=== PATIENT | female | born 1960 | race Caucasian/White ===

== ENCOUNTER → 2016-10-11 | Outpatient (CLI) | payer OTHER ==
--- NOTE | 2016-10-11 10:07 | XR ---
Thoracic spine HISTORY: Mid back pain 2 views of the thoracic spine on 4 images Comparison lumbar spine same date Thoracic vertebral bodies show preserved height, alignment, and bone mineralization. There is multile alison spondylosis. Disc spaces are maintained. There is mild spinal curvature. Multilevel spondylosis. IMPRESSION: Mild spinal curvature, degenerative disc change.
--- NOTE | 2016-10-11 10:08 | XR ---
Lumbosacral spine HISTORY: Low back pain, M54.5 By views of the lumbosacral spine correlated to the thoracic spine same day Bone mineralization may be mildly reduced. There is multilevel spondylosis. Loss of disc height L4-5 and L5-S1. Sclerosis of the posterior elements compatible with facet arthropathy. Lumbar vertebral lissy dies show preserved height and alignment. No spondylolysis and oblique views. IMPRESSION: Degenerative disc disease, osteopenia, facet arthropathy.
--- NOTE | 2016-10-11 15:33 | US ---
EXAMINATION TYPE: US thyroid st tissue head/neck DATE OF EXAM: 10/11/2016 9:02 AM COMPARISON: NONE CLINICAL History: synthroid for years now blood work wnl GLAND SIZE: Right Lobe: 3.1 x 0.7 x 0.8 cm Overall Parenchyma: homogeneous Left Lobe: 2.9 x 1.0 x 1.0 cm Overall Parenchyma: homogeneous Isthmus Thickness: 0.1 cm NODULES RIGHT: # of nodules measured on right: 0 ;LEFT: # of nodules measured on left: 1 1. 0.5 X 0.5 x 0.5 cm solid nodule at the lower pole with poorly defined margins. This nodule is wider than tall and shows intranodular vascularity. Prior size: no prior ISTHMUS: # of nodules measured in the isthmus: 0 TECHNOLOGIST IMPRESSION: Bilateral neck scanned, no abnormal lymphadenopathy noted. IMPRESSION: 1.Subcentimeter nodule left lobe thyroid
== END | disposition home or self-care (01) ==
LOC: RADUSWWP 08:49
PROVIDERS: ATTEND Family Medicine
DX: E03.9 Hypothyroidism, unspecified (principal); M51.36 Other intervertebral disc degeneration, lumbar region; M85.88 Other specified disorders of bone density and structure, other site; M46.96 Unspecified inflammatory spondylopathy, lumbar region; M51.34 Other intervertebral disc degeneration, thoracic region; M43.9 Deforming dorsopathy, unspecified
CPT/HCPCS: 72070; 72110; 76536

== ENCOUNTER → 2016-10-28 | Outpatient (CLI) | payer OTHER ==
--- NOTE | 2016-10-28 21:20 | MR ---
EXAMINATION TYPE: MR lumbar spine wo con DATE OF EXAM: 10/28/2016 8:19 PM COMPARISON: Lumbar spine x-ray dated 10/11/2016 HISTORY: Mid/low back pain, BLE radic x 1 year, no trauma/surgery TECHNIQUE: T1 and T2 axial and sagittal images of the lumbar spine are submitted. FINDINGS: Exam limited by significant motion artifact. There is no abnormal signal seen within the visualized spinal cord or paraspinal soft tissues. There is mild disc desiccation at all levels. T12-L1 no disc herniation or canal stenosis. Neural foramina patent. At L1-2 there is a right paracentral disc bulge or small protrusion. Neural foramina remains patent. No Canal stenosis. At L2-3 there is central disc small protrusion with mild effacement of thecal sac. Neural foramina re main patent. At L3-4 there is no obvious disc herniation or canal stenosis. Facet arthropathy noted. Neural forami na patent. At L4-5 there is no obvious disc herniation or canal stenosis. Facet arthropathy noted. Neural forami na patent. At L5-S1 there is no obvious disc herniation or canal stenosis. Facet arthropathy noted. Neural lucia naila patent. IMPRESSION: 1. Limited exam due to motion artifact. 2. Disc small protrusion L1-2 and L2-L3 with no evidence of canal stenosis or foraminal encroachment . Mild thecal sac effacement at L2-L3 3. Multilevel facet arthropathy and mild degenerative disc disease. EXAMINATION TYPE: MR thoracic spine wo con DATE OF EXAM: 10/28/2016 8:19 PM COMPARISON: Thoracic spine x-ray dated 10/11/2016 HISTORY: Mid/low back pain, BLE radic x 1 year, no trauma/surgery Standard multiplanar, multisequence MRI departmental protocol Multiplanar, multisequence images of the thoracic spine were acquired. Diffusion weighted imaging was performed. FINDINGS: Alignment is anatomic. There are no compression deformities. There is multilevel mild degenerative disc disease. No canal stenosis or focal disc herniation. Neura l foramina patent at all levels. Minimal left paracentral disc bulging T7-T8 and T8-T9. No abnormal signal within the visualized spinal cord or paraspinal soft tissues. IMPRESSION: 1. Multilevel mild degenerative disc disease with minimal disc bulging paracentrally the left T7-T8 a nd T8-T9. No canal stenosis or foraminal encroachment.
== END | disposition home or self-care (01) ==
LOC: RADMRIMAIN 19:08
PROVIDERS: ATTEND Family Medicine
DX: M51.26 Other intervertebral disc displacement, lumbar region (principal); M51.36 Other intervertebral disc degeneration, lumbar region; M46.96 Unspecified inflammatory spondylopathy, lumbar region; M51.24 Other intervertebral disc displacement, thoracic region; M51.34 Other intervertebral disc degeneration, thoracic region
CPT/HCPCS: 72146; 72148

== ENCOUNTER → 2016-12-23 | Outpatient (CLI) | payer OTHER ==
--- NOTE | 2016-12-23 15:07 | XR ---
EXAMINATION TYPE: XR chest 2V DATE OF EXAM: 12/23/2016 3:01 PM HISTORY: R50.9 Intermittent fever, R05 Cough. REFERENCE: Previous study dated 03/24/2016. FINDINGS: The lungs are clear. Pleural spaces are clear. Heart size is normal. IMPRESSION: NORMAL CHEST.
== END | disposition home or self-care (01) ==
LOC: RADXRMAIN 14:41
PROVIDERS: ATTEND Family Medicine
DX: R05 Cough (principal); R50.9 Fever, unspecified
CPT/HCPCS: 71020; 87502

== ENCOUNTER 2017-01-05 15:55 | Emergency (ER) | payer OTHER ==
--- NOTE | 2017-01-05 17:45 | ED ---
General Adult HPI - General Chief complaint: Abdominal Pain Stated complaint: Abdominal pain Time Seen by Provider: 01/05/17 17:21 Source: patient, RN notes reviewed Mode of arrival: ambulatory Limitations: no limitations - History of Present Illness Initial comments: Patient is a pleasant 56-year-old female presenting to the emergency department complaining of abdominal discomfort. Patient did have routine blood work done recently with mild elevation of liver enzymes. Patient then had ultrasound done. Patient states she has had some abdominal discomfort over the past week. Discomfort worse today. Patient has nausea with one or 2 episodes of vomiting. No bleeding. No fevers. No history of chronic abdominal problems. Patient does have a history of alcohol use. Patient states she used to drink daily for around 20 years up to a fifth of alcohol daily. Patient has not drank in years. - Related Data Home Medications Medication Instructions Recorded Confirmed FLUoxetine HCL [PROzac] 40 mg PO DAILY 03/24/16 01/05/17 [place] 80 mg PO DAILY 01/05/17 01/05/17 Cholecalciferol [Vitamin D3] 1,000 unit PO DAILY 01/05/17 01/05/17 Docusate [Colace] 100 mg PO BID PRN 01/05/17 01/05/17 Gabapentin [Neurontin] 300 mg PO HS 01/05/17 01/05/17 HYDROcodone/APAP 5-325MG [[place] 1 tab PO HS 01/05/17 01/05/17 5-325] Levothyroxine Sodium [Synthroid] 75 mcg PO DAILY 01/05/17 01/05/17 Multivitamins, Thera [Multivitamin 1 tab PO DAILY 01/05/17 01/05/17 (formulary)] Previous Rx's Medication Instructions Recorded Dicyclomine [Bentyl] 20 mg PO QID PRN #15 tablet 01/05/17 Famotidine [Pepcid] 20 mg PO BID #30 tablet 01/05/17 Ondansetron Odt [Zofran Odt] 4 mg PO Q8HR PRN #10 tab 01/05/17 Allergies Allergy/AdvReac Type Severity Reaction Status Date / Time heparin Allergy Unknown Verified 01/05/17 17:40 neomycin AdvReac Rash/Hives Verified 01/05/17 18:15 Review of Systems ROS Statement: Those systems with pertinent positive or pertinent negative responses have been documented in the HPI. ROS Other: All systems not noted in ROS Statement are negative. Constitutional: Denies: fever Eyes: Denies: eye pain ENT: Denies: ear pain Respiratory: Denies: cough Cardiovascular: Denies: chest pain Endocrine: Reports: fatigue Gastrointestinal: Reports: abdominal pain, nausea, vomiting. Denies: diarrhea, constipation Genitourinary: Denies: dysuria Musculoskeletal: Denies: back pain Skin: Denies: rash Neurological: Denies: weakness Past Medical History Past Medical History: Hyperlipidemia, Thyroid Disorder History of Any Multi-Drug Resistant Organisms: None Reported Past Surgical History: Section, Hysterectomy, Joint Replacement Additional Past Surgical History / Comment(s): carpal tunnel Past Psychological History: No Psychological Hx Reported Smoking Status: Never smoker Past Alcohol Use History: None Reported Past Drug Use History: None Reported - Past Family History Father History Unknown: Yes Additional Family Medical History / Comment(s): CANCER, ADOPTED NOT MUCH FAMILY HISTORY General Exam Limitations: no limitations General appearance: alert, in no apparent distress Head exam: Present: atraumatic Eye exam: Present: normal appearance, PERRL ENT exam: Present: normal oropharynx Neck exam: Present: normal inspection Respiratory exam: Present: normal lung sounds bilaterally Cardiovascular Exam: Present: regular rate, normal rhythm Expanded Peripheral pulses: 2+: Dorsalis Pedis (R), Dorsalis Pedis (L) GI/Abdominal exam: Present: soft, tenderness (Mild to moderate epigastric tenderness), normal bowel sounds. Absent: distended, guarding, rebound, rigid, pulsatile mass Extremities exam: Present: normal inspection Neurological exam: Present: alert Psychiatric exam: Present: normal affect, normal mood Skin exam: Absent: rash Course Vital Signs 01/05/17 01/05/17 16:15 19:22 Temperature 97.8 F 97.8 F Pulse Rate 82 67 Respiratory 20 18 Rate Blood Pressure 124/81 117/61 O2 Sat by Pulse 94 L 98 Oximetry - Reevaluation(s) Reevaluation #1: 01/05/17 17:43 Recent ultrasound shows possible hepatocellular disease of the liver. Blood work from the primary care physician showed minimal elevation of AST and ALT. EKG Findings - EKG Comments: EKG Findings:: Sinus rhythm at 63. PVC present. CO 144. QRS 76. QT 418. QTC 47. Normal axis. Normal QRS. Normal ST-T. Medical Decision Making - Medical Decision Making Patient is reevaluated and resting comfortably in bed. Patient comfortable with discharge home. Patient updated on results and need for follow-up. Patient is advised to follow-up with her primary care physician regarding liver enzymes as well. - Lab Data Result diagrams: 01/05/17 17:45 01/05/17 17:45 Lab Results 01/05/17 01/05/17 01/05/17 Range/Units 17:45 17:45 17:45 WBC 5.9 (3.8-10.6) k/uL RBC 4.60 (3.80-5.40) m/uL Hgb 15.2 (11.4-16.0) gm/dL Hct 45.1 (34.0-46.0) % MCV 98.0 (80.0-100.0) fL MCH 33.0 (25.0-35.0) pg MCHC 33.7 (31.0-37.0) g/dL RDW 14.0 (11.5-15.5) % Plt Count 305 (150-450) k/uL Neutrophils % 53 % Lymphocytes % 38 % Monocytes % 5 % Eosinophils % 2 % Basophils % 1 % Neutrophils # 3.1 (1.3-7.7) k/uL Lymphocytes # 2.2 (1.0-4.8) k/uL Monocytes # 0.3 (0-1.0) k/uL Eosinophils # 0.1 (0-0.7) k/uL Basophils # 0.1 (0-0.2) k/uL PT (9.0-12.0) sec INR (<1.1) APTT (22.0-30.0) sec Sodium 140 (137-145) mmol/L Potassium 4.3 (3.5-5.1) mmol/L Chloride 102 (98-107) mmol/L Carbon Dioxide 30 (22-30) mmol/L Anion Gap 8 mmol/L BUN 15 (7-17) mg/dL Creatinine 0.82 (0.52-1.04) mg/dL Est GFR (MDRD) Af Amer >60 (>60 ml/min/1.73 sqM) Est GFR (MDRD) Non-Af >60 (>60 ml/min/1.73 sqM) Glucose 85 (74-99) mg/dL Calcium 10.5 H (8.4-10.2) mg/dL Total Bilirubin 0.4 (0.2-1.3) mg/dL AST 47 H (14-36) U/L ALT 114 H (9-52) U/L Alkaline Phosphatase 100 (38-126) U/L Total Creatine Kinase 78 (30-135) U/L CK-MB (CK-2) 0.5 (0.0-2.4) ng/mL CK-MB (CK-2) Rel Index 0.6 Troponin I <0.012 (0.000-0.034) ng/mL Total Protein 7.2 (6.3-8.2) g/dL Albumin 4.3 (3.5-5.0) g/dL Amylase 46 (30-110) U/L Lipase 259 (23-300) U/L Urine Color Urine Appearance (Clear) Urine pH (5.0-8.0) Ur Specific [place] (1.001-1.035) Urine Protein (Negative) Urine Glucose (UA) (Negative) Urine Ketones (Negative) Urine Blood (Negative) Urine Nitrite (Negative) Urine Bilirubin (Negative) Urine Urobilinogen (<2.0) mg/dL Ur Leukocyte Esterase (Negative) Hepatitis A IgM Ab NEGATIVE Hep Bs Antigen Negative Hep B Core IgM Ab NEGATIVE Hep C IgG Ab Negative (Negative) 01/05/17 01/05/17 Range/Units 17:45 17:45 WBC (3.8-10.6) k/uL RBC (3.80-5.40) m/uL Hgb (11.4-16.0) gm/dL Hct (34.0-46.0) % MCV (80.0-100.0) fL MCH (25.0-35.0) pg MCHC (31.0-37.0) g/dL RDW (11.5-15.5) % Plt Count (150-450) k/uL Neutrophils % % Lymphocytes % % Monocytes % % Eosinophils % % Basophils % % Neutrophils # (1.3-7.7) k/uL Lymphocytes # (1.0-4.8) k/uL Monocytes # (0-1.0) k/uL Eosinophils # (0-0.7) k/uL Basophils # (0-0.2) k/uL PT 10.7 (9.0-12.0) sec INR 1.1 (<1.1) APTT 23.8 (22.0-30.0) sec Sodium (137-145) mmol/L Potassium (3.5-5.1) mmol/L Chloride (98-107) mmol/L Carbon Dioxide (22-30) mmol/L Anion Gap mmol/L BUN (7-17) mg/dL Creatinine (0.52-1.04) mg/dL Est GFR (MDRD) Af Amer (>60 ml/min/1.73 sqM) Est GFR (MDRD) Non-Af (>60 ml/min/1.73 sqM) Glucose (74-99) mg/dL Calcium (8.4-10.2) mg/dL Total Bilirubin (0.2-1.3) mg/dL AST (14-36) U/L ALT (9-52) U/L Alkaline Phosphatase (38-126) U/L Total Creatine Kinase (30-135) U/L CK-MB (CK-2) (0.0-2.4) ng/mL CK-MB (CK-2) Rel Index Troponin I (0.000-0.034) ng/mL Total Protein (6.3-8.2) g/dL Albumin (3.5-5.0) g/dL Amylase (30-110) U/L Lipase (23-300) U/L Urine Color Light Yellow Urine Appearance Clear (Clear) Urine pH 6.0 (5.0-8.0) Ur Specific [place] 1.004 (1.001-1.035) Urine Protein Negative (Negative) Urine Glucose (UA) Negative (Negative) Urine Ketones Negative (Negative) Urine Blood Negative (Negative) Urine Nitrite Negative (Negative) Urine Bilirubin Negative (Negative) Urine Urobilinogen <2.0 (<2.0) mg/dL Ur Leukocyte Esterase Negative (Negative) Hepatitis A IgM Ab Hep Bs Antigen Hep B Core IgM Ab Hep C IgG Ab (Negative) - Radiology Data Radiology results: image reviewed (Computed tomography scan of the abdomen and pelvis shows concern for possible small bowel enteritis / ileus.) Disposition Clinical Impression: Enteritis Disposition: HOME SELF-CARE Condition: Stable Instructions: Enteritis (ED) Additional Instructions: Please follow-up with your doctor this week. Return for uncontrolled pain, uncontrolled vomiting, fevers, worsening symptoms or other concerns. Please have your doctor follow-up further regarding liver testing. Prescriptions: Dicyclomine [Bentyl] 20 mg PO QID PRN #15 tablet PRN Reason: Pain Famotidine [Pepcid] 20 mg PO BID #30 tablet Ondansetron Odt [Zofran Odt] 4 mg PO Q8HR PRN #10 tab PRN Reason: Nausea Referrals: Meka Magallon MD [Primary Care Provider] - 1-2 days
[2017-01-05 18:00] LABS: Basophils # (A) 0.1 k/uL (0-0.2); Basophils % (A) 1 %; CH 33.7; CHCM 34.6; Eosinophils # (A) 0.1 k/uL (0-0.7); Eosinophils % (A) 2 %; HCT 45.1 % (34.0-46.0); HDW 2.49; HGB 15.2 gm/dL (11.4-16.0); Luc # (Auto) 0.09; Luc % (Auto) 1; Lymphocytes # (A) 2.2 k/uL (1.0-4.8); Lymphocytes % (A) 38 %; MCHC 33.7 g/dL (31.0-37.0); Mean Platelet Volume 7.2; Monocytes # (A) 0.3 k/uL (0-1.0); Monocytes % (A) 5 %; Neutrophils # (A) 3.1 k/uL (1.3-7.7); Neutrophils % (A) 53 %; WBC 5.9 k/uL (3.8-10.6); WBC (Perox) 5.69
[2017-01-05 18:01] LABS: Appearance,Urine Clear (Clear); Bilirubin,Urine Negative (Negative); Glucose,Urine (UA) Negative (Negative); Ketones,Urine Negative (Negative); Leukocyte Esterase,Urine Negative (Negative); Nitrite,Urine Negative (Negative); Protein,Urine Negative (Negative); Specific Gravity,Urine 1.004 (1.001-1.035); UA Billing (MACRO vs. MICRO) CHEM; Urobilinogen,Urine <2.0 mg/dL (<2.0)
[2017-01-05 18:09] LABS: INR 1.1 (<1.1); Prothrombin Time 10.7 sec (9.0-12.0)
[2017-01-05 18:10] LABS: Partial Thromboplastin Time 23.8 sec (22.0-30.0)
[2017-01-05] MEDS: ONDANSETRON 4 MG/2 ML VIAL IVP STA ×2 (18:15→19:27)
[2017-01-05] MEDS: FAMOTIDINE 20 MG/2 ML VIAL IV STA (18:15)
[2017-01-05] MEDS: MORPHINE SULFATE 4 MG/ML SYRINGE IV STA (18:15)
[2017-01-05] MEDS: SODIUM CHLORIDE 0.9% 1,000 ML IV STA (18:16)
[2017-01-05 18:19] LABS: ALT 114 U/L (9-52); AST 47 U/L (14-36); Alkaline Phosphatase 100 U/L (38-126); Amylase 46 U/L (30-110); Anion Gap 8 mmol/L; Blood Urea Nitrogen 15 mg/dL (7-17); Calcium 10.5 mg/dL (8.4-10.2); Carbon Dioxide 30 mmol/L (22-30); Chloride 102 mmol/L (98-107); Glucose 85 mg/dL (74-99); Non-African American GFR(MDRD) >60 (>60 ml/min/1.73 sqM); Potassium 4.3 mmol/L (3.5-5.1); Sodium 140 mmol/L (137-145); Total Bilirubin 0.4 mg/dL (0.2-1.3); Total Protein 7.2 g/dL (6.3-8.2)
[2017-01-05 18:29] LABS: Creatine Kinase 78 U/L (30-135)
[2017-01-05 18:42] LABS: Creatine Kinase MB 0.5 ng/mL (0.0-2.4); Troponin I <0.012 ng/mL (0.000-0.034)
[2017-01-05 18:49] LABS: Hepatitis B Surface Ag Index 0.05
[2017-01-05 18:55] LABS: Hepatitis B Core IgM Index 0.21
[2017-01-05 19:06] LABS: Hepatitis C Virus IgG Index 0.01
[2017-01-05 19:08] LABS: Hepatitis C Virus IgG Ab Negative (Negative)
--- NOTE | 2017-01-05 19:08 | CT ---
EXAMINATION TYPE: CT abdomen pelvis w con DATE OF EXAM: 01/05/2017 6:59 PM COMPARISON: NONE HISTORY: Patient complains of generalized abdominal pain, mildly elevated LFT's, nausea, and vomiting . CT DLP: 463.4 mGycm CONTRAST: CT scan of the abdomen and pelvis is performed without Oral Contrast and with IV Contrast, patient in jected with 100 mL of Omnipaque 300. FINDINGS: LUNG BASES-: No visible nodule. No infiltrate. LIVER/GB: Cholecystectomy changes noted. No space occupying hepatic lesion. Biliary tree is of nor mal caliber. PANCREAS: No inflammation. No distinct mass. SPLEEN: No splenic enlargement. No lesion seen. ADRENALS: No nodule. No thickening. KIDNEYS/BLADDER: No hydronephrosis. No nephrolithiasis. No disctinct renal mass. Urinary bladder g rossly unremarkable. BOWEL: Normal appendix. There are several distended loops of small bowel measuring up to 2.8 cm which may reflect ileus and/or enteritis. The remaining small bowel is of normal caliber. Large bowel is o f normal caliber without inflammatory change. Moderate fecal stasis identified. No evidence for free air or abscess. No inflammation. GENITAL ORGANS: No gross abnormality. LYMPH NODES: No greater than 1cm abdominal or pelvic lymph nodes are appreciated. AORTA: No significant abnormality. OSSEOUS STRUCTURES: No significant abnormality is seen. OTHER: No significant additional abnormality is seen. IMPRESSION: 1. Correlate for small bowel enteritis with a mild ileus.
[2017-01-05 19:22] VITALS: RESP 18
[2017-01-05] MEDS: RX INFO: IV CONTRAST WAS GIVEN 1 EACH MISC MISCELLANE PRN (19:28)
[2017-01-05] MEDS: HYDROmorphone 1 MG/ML 1 ML SYRINGE IVP STA (19:29)
[2017-01-05 20:32] VITALS: BP 139/94; PULSE 86; TEMP 98
== END 2017-01-05 20:35 | disposition home or self-care (01) ==
LOC: EC 15:55
DX: K52.9 Noninfective gastroenteritis and colitis, unspecified (principal); R11.2 Nausea with vomiting, unspecified; R74.8 Abnormal levels of other serum enzymes; E07.9 Disorder of thyroid, unspecified; Z79.891 Long term (current) use of opiate analgesic; Z79.899 Other long term (current) drug therapy; Z88.1 Allergy status to other antibiotic agents; Z88.8 Allergy status to other drugs, medicaments and biological substances
CPT/HCPCS: 36415; 93005; 80053; 80074; 82150; 82550; 82553; 83690; 84484; 85025; 85610; 85730; 81003; 74177; 99284; 96374; 96375 ×3; 96376; 96361 ×2; J2270; J2405; J1170; Q9967

== ENCOUNTER 2017-02-27 23:44 | Emergency (ER) | payer OTHER ==
[2017-02-27] MEDS ORDERED: ONDANSETRON 4 MG/2 ML VIAL IVP STA (23:53)
[2017-02-27] MEDS ORDERED: MAG HYDROX/AL HYDROX/SIMETH 30 ML, HYOSCYAMINE ELIXIR 10 ML, CIMETIDINE HCL 300 MG, LID... PO STA ×4 (23:53)
[2017-02-27] MEDS ORDERED: SODIUM CHLORIDE 0.9% 1,000 ML IV STA (23:53)
--- NOTE | 2017-02-28 00:06 | ED ---
Nausea/Vomiting/Diarrhea HPI - General Stated complaint: Knee Pain-L Time Seen by Provider: 02/27/17 23:46 Source: patient, RN notes reviewed Mode of arrival: EMS Limitations: no limitations - History of Present Illness Initial comments: 57-year-old female presents emergency Department chief complaint of nausea and vomiting. Patient states ever since she started taking Zithromax she's noticed some increased of her GERD and when she bends over she was will feel nauseous and she will vomit. Patient states that happens very quickly. Patient states she was concerned due to her symptoms so she thought that she should be evaluated. Patient has had left knee pain and is supposed knee replacement. She saw her surgeon on Tuesday he states he regained better monitored finish the antibiotics. She states it doesn't seem to be improving from when she was initially seen for it. Patient states she hasn't had a fever chills cough cold runny nose with this. Patient denies any abdominal pain. Patient states she went to make sure that everything was okay so she thought that she should be evaluated. - Related Data Home Medications Medication Instructions Recorded Confirmed FLUoxetine HCL [PROzac] 40 mg PO DAILY 03/24/16 02/27/17 Cholecalciferol [Vitamin D3] 1,000 unit PO DAILY 01/05/17 02/27/17 Docusate [Colace] 100 mg PO BID PRN 01/05/17 02/27/17 Gabapentin [Neurontin] 300 mg PO HS 01/05/17 02/27/17 HYDROcodone/APAP 5-325MG [[place] 1 tab PO HS 01/05/17 02/27/17 5-325] Levothyroxine Sodium [Synthroid] 75 mcg PO DAILY 01/05/17 02/27/17 Multivitamins, Thera [Multivitamin 1 tab PO DAILY 01/05/17 02/27/17 (formulary)] Previous Rx's Medication Instructions Recorded Famotidine [Pepcid] 20 mg PO BID #30 tablet 01/05/17 Ondansetron Odt [Zofran ODT] 4 mg PO Q8HR PRN #20 tab 02/28/17 Allergies Allergy/AdvReac Type Severity Reaction Status Date / Time heparin Allergy Unknown Verified 02/27/17 23:55 neomycin AdvReac Rash/Hives Verified 06/04/17 23:55 Review of Systems ROS Statement: Those systems with pertinent positive or pertinent negative responses have been documented in the HPI. ROS Other: All systems not noted in ROS Statement are negative. Past Medical History Past Medical History: Hyperlipidemia, Thyroid Disorder History of Any Multi-Drug Resistant Organisms: MRSA Past Surgical History: Section, Hysterectomy, Joint Replacement Additional Past Surgical History / Comment(s): carpal tunnel, Past Psychological History: Bipolar Smoking Status: Never smoker Past Alcohol Use History: None Reported Past Drug Use History: None Reported - Past Family History Father History Unknown: Yes Additional Family Medical History / Comment(s): CANCER, ADOPTED NOT MUCH FAMILY HISTORY General Exam - General Exam Comments Initial Comments: General: The patient is awake and alert, in no distress, and does not appear acutely ill. Eye: Pupils are equal, round and reactive to light, extra-ocular movements are intact; there is normal conjunctiva bilaterally. No signs of icterus. Ears, nose, mouth and throat: There are moist mucous membranes and no oral lesions. Neck: The neck is supple, there is no tenderness. Cardiovascular: There is a regular rate and rhythm. No murmur, rub or gallop is appreciated. Respiratory: Lungs are clear to auscultation, respirations are non-labored, breath sounds are equal. No wheezes, stridor, rales, or rhonchi. Gastrointestinal: Soft, non-distended, non-tender abdomen without masses or organomegaly noted. There is no rebound or guarding present. No CVA tenderness. Bowel sounds are unremarkable. Back: There is no tenderness to palpation in the midline. There is no obvious deformity. No rashes noted. Musculoskeletal: Normal ROM, no tenderness, There is no pedal edema. There is no calf tenderness or swelling. Sensation intact. Pulses equal bilaterally 2+. Neurological: CN II-XII intact, There are no obvious motor or sensory deficits. Coordination appears grossly intact. Speech is normal. Skin: Skin is warm and dry and no rashes or lesions are noted. Psychiatric: Cooperative, appropriate mood & affect, normal judgment. Limitations: no limitations Course Vital Signs 02/27/17 02/28/17 23:46 00:58 Temperature 97.9 F 98.2 F Pulse Rate 86 76 Respiratory 18 18 Rate Blood Pressure 161/75 129/75 O2 Sat by Pulse 97 98 Oximetry Medical Decision Making - Medical Decision Making 57-year-old female presents for nausea vomiting that started after starting antibiotics. This time from the story does seem as if her GERD has flared up. The patient nausea as well as a GI cocktail. At this time patient refused to have a enteritis. This time we discussed Zofran. Discussed return parameters and follow-up. Other etiologies for this and all the patient's questions. They state Jah they're in the plan. Patient will be discharged home. - Lab Data Result diagrams: 02/28/17 00:01 02/28/17 00:01 Lab Results 02/28/17 02/28/17 Range/Units 00:01 00:01 WBC 6.6 (3.8-10.6) k/uL RBC 3.47 L (3.80-5.40) m/uL Hgb 11.4 D (11.4-16.0) gm/dL Hct 35.3 (34.0-46.0) % MCV 101.8 H (80.0-100.0) fL MCH 32.9 (25.0-35.0) pg MCHC 32.3 (31.0-37.0) g/dL RDW 14.0 (11.5-15.5) % Plt Count 400 (150-450) k/uL Neutrophils % 67 % Lymphocytes % 23 % Monocytes % 6 % Eosinophils % 2 % Basophils % 1 % Neutrophils # 4.4 (1.3-7.7) k/uL Lymphocytes # 1.5 (1.0-4.8) k/uL Monocytes # 0.4 (0-1.0) k/uL Eosinophils # 0.2 (0-0.7) k/uL Basophils # 0.0 (0-0.2) k/uL Macrocytosis Slight Sodium 143 (137-145) mmol/L Potassium 4.0 (3.5-5.1) mmol/L Chloride 104 (98-107) mmol/L Carbon Dioxide 30 (22-30) mmol/L Anion Gap 9 mmol/L BUN 13 (7-17) mg/dL Creatinine 1.00 (0.52-1.04) mg/dL Est GFR (MDRD) Af Amer >60 (>60 ml/min/1.73 sqM) Est GFR (MDRD) Non-Af 57 (>60 ml/min/1.73 sqM) Glucose 92 (74-99) mg/dL Calcium 9.6 (8.4-10.2) mg/dL Total Bilirubin 0.2 (0.2-1.3) mg/dL AST 59 H (14-36) U/L ALT 93 H (9-52) U/L Alkaline Phosphatase 156 H (38-126) U/L Total Protein 6.4 (6.3-8.2) g/dL Albumin 3.8 (3.5-5.0) g/dL - Radiology Data Radiology results: report reviewed, image reviewed Disposition Clinical Impression: Enteritis, Left knee pain Disposition: HOME SELF-CARE Condition: Stable Instructions: Acute Nausea and Vomiting (ED) Additional Instructions: Please use medication as discussed. Please follow up with family doctor if symptoms have not improved over the next two days. Please return to the emergency room if your symptoms increase or worsen or for any other concerns. Prescriptions: Ondansetron Odt [Zofran ODT] 4 mg PO Q8HR PRN #20 tab PRN Reason: Nausea Referrals: Meka Magallon MD [Primary Care Provider] - 1-2 days Time of Disposition: 02:37
[2017-02-28 00:16] VITALS: RESP 18
[2017-02-28 00:22] LABS: Basophils % (A) 1 %; CH 33.8; CHCM 33.3; Eosinophils # (A) 0.2 k/uL (0-0.7); Eosinophils % (A) 2 %; HCT 35.3 % (34.0-46.0); HDW 2.86; Luc # (Auto) 0.09; Luc % (Auto) 1; Lymphocytes # (A) 1.5 k/uL (1.0-4.8); Lymphocytes % (A) 23 %; MCH 32.9 pg (25.0-35.0); MCHC 32.3 g/dL (31.0-37.0); MCV 101.8 fL (80.0-100.0); Macrocytosis Slight; Mean Platelet Volume 6.4; Monocytes # (A) 0.4 k/uL (0-1.0); Monocytes % (A) 6 %; Neutrophils # (A) 4.4 k/uL (1.3-7.7); Neutrophils % (A) 67 %; RBC 3.47 m/uL (3.80-5.40); WBC 6.6 k/uL (3.8-10.6); WBC (Perox) 6.81
[2017-02-28 00:23] LABS: HGB 11.4 gm/dL (11.4-16.0)
[2017-02-28 00:37] LABS: ALT 93 U/L (9-52); AST 59 U/L (14-36); Alkaline Phosphatase 156 U/L (38-126); Anion Gap 9 mmol/L; Blood Urea Nitrogen 13 mg/dL (7-17); Calcium 9.6 mg/dL (8.4-10.2); Carbon Dioxide 30 mmol/L (22-30); Chloride 104 mmol/L (98-107); Glucose 92 mg/dL (74-99); Non-African American GFR(MDRD) 57 (>60 ml/min/1.73 sqM); Sodium 143 mmol/L (137-145); Total Bilirubin 0.2 mg/dL (0.2-1.3); Total Protein 6.4 g/dL (6.3-8.2)
--- NOTE | 2017-02-28 00:55 | XR ---
INDICATION: Abdominal pain COMPARISON: CT abdomen and pelvis 01/05/17. FINDINGS: Upright and supine AP views of the abdomen are provided. There is a normal, nonobstructive bowel gas pattern. No evidence of organomegaly or obvious soft tissue masses. Pelvic calcifications likely represent phleboliths. The osseous structures are intact. IMPRESSION: Nonobstructive bowel gas pattern.
[2017-02-28 00:59] VITALS: TEMP 98.2
[2017-02-28] MEDS ORDERED: RX INFO: IV CONTRAST WAS GIVEN 1 EACH MISC MISCELLANE PRN (01:11)
[2017-02-28] MEDS ORDERED: HYDROmorphone 1 MG/ML 1 ML SYRINGE IVP STA (01:32)
--- NOTE | 2017-02-28 02:33 | CT ---
INDICATION: Abdominal pain TECHNIQUE: Helical CT acquisition is performed through the abdomen and pelvis following the administration of IV contrast. Delayed postcontrast images were acquired through the kidneys. Sagittal and coronal reformatted images are available. This CT exam was performed using one or more of the following dose reduction techniques: automated exposure control, adjustment of the mA and/or kV according to patient size, and/or use of iterative reconstruction technique. DOSIMETRY: CTDIvol 11.90 mGy; DLP 421.30 mGy-cm. COMPARISON: Abdominal radiograph 02/28/17; CT abdomen and pelvis 01/05/17 FINDINGS: The lung bases are clear. Status post cholecystectomy. The liver, spleen, pancreas, and adrenal glands are within normal limits. Kidneys enhance symmetrically, without hydronephrosis or perinephric stranding. There is no evidence of small or large bowel obstruction. The visualized appendix is normal. Mildly fluid distended loops of distal small bowel are demonstrated. There is no free air or free fluid in the abdomen or pelvis. Status post hysterectomy. Urinary bladder is unremarkable. Aorta and IVC are normal. There is no lymphadenopathy. There are no acute osseous findings. IMPRESSION: 1. Fluid distended loops of distal small bowel may represent nonspecific enteritis. Degree of small bowel distention is decreased in comparison to prior exam.
[2017-02-28 02:39] VITALS: BP 133/62; PULSE 90
== END 2017-02-28 02:58 | disposition home or self-care (01) ==
LOC: EC 23:44
DX: K52.9 Noninfective gastroenteritis and colitis, unspecified (principal); M25.562 Pain in left knee; E07.9 Disorder of thyroid, unspecified; F31.9 Bipolar disorder, unspecified; Z96.652 Presence of left artificial knee joint; Z88.8 Allergy status to other drugs, medicaments and biological substances; Z88.1 Allergy status to other antibiotic agents; Z79.899 Other long term (current) drug therapy
CPT/HCPCS: 99284; 96374; 96375; 96361; 36415; 80053; 85025; 74020; 74177; Q9967; J2405; J1170

== ENCOUNTER → 2017-03-03 | Outpatient (CLI) | payer OTHER ==
--- NOTE | 2017-03-03 17:12 | US ---
EXAMINATION TYPE: US venous Doppler duplex LE LT DATE OF EXAM: 03/03/2017 4:55 PM COMPARISON: NONE CLINICAL HISTORY: M79.66 Left lower leg pain. Awakened today with left knee swelling; had left knee r eplacement in January 2017 SIDE PERFORMED: Left TECHNIQUE: The lower extremity deep venous system is examined utilizing real time linear array sonog savage with graded compression, Doppler sonography and color-flow sonography. VESSELS IMAGED: Common Femoral Vein Deep Femoral Vein Greater Saphenous Vein * Femoral Vein Popliteal Vein Small Saphenous Vein * Proximal Calf Veins (* superficial vessels) Left Leg: Negative for DVT. At left knee medial swelling complex area with fluid is noted = 8.0 x 3. 8 x 1.8cm and also noted lateral to left knee = 6.0 x 3.0 x 1.0cm. IMPRESSION: There is no evidence of deep venous thrombosis. There are complex fluid collections at th e knee joint that are nonspecific.
== END | disposition home or self-care (01) ==
LOC: RADUSWWP 16:14
PROVIDERS: ATTEND Family Medicine
DX: M25.462 Effusion, left knee (principal); M79.605 Pain in left leg; Z96.652 Presence of left artificial knee joint

== ENCOUNTER 2017-04-05 13:13 | Emergency (ER) | payer OTHER ==
--- NOTE | 2017-04-05 13:52 | ED ---
Psych HPI - General Chief Complaint: Psychiatric Symptoms Stated Complaint: Suicidal Time Seen by Provider: 04/05/17 13:20 Source: patient, family, RN notes reviewed Mode of arrival: ambulatory - History of Present Illness Initial Comments: Patient is a 57-year-old female presents to the emergency room for psych evaluation. Patient states she has been having suicidal thoughts since Tuesday. Patient states that she's been having a lot of thoughts going through her head and she's lost the "will to live". Patient states she recently had knee replacement and has lost mobility was also frustrates her. Patient denies a plan. Patient just states she does not know if she wants to live anymore. Patient states that she has a history of suicidal attempts. Patient states she takes Prozac for depression. Patient states she was diagnosed in the past with bipolar disorder, multiple personality disorder and borderline personality disorder. Patient states that she follows up with a counselor and psychiatrist. Patient's counselor is present with patient. Patient's counselor states that she received a text from patient this morning stating that she hasn't gotten out of bed since Tuesday. Patient denies homicidal ideations. Patient denies visual or auditory hallucinations. Patient denies alcohol use. Patient denies smoking. Patient denies illicit drug use. Patient is chest pain, shortness of breath, headache, dizziness, nausea, vomiting, fevers, chills. - Related Data Home Medications Medication Instructions Recorded Confirmed Cholecalciferol [Vitamin D3] 1,000 unit PO DAILY 01/05/17 04/05/17 Docusate [Colace] 100 mg PO BID PRN 01/05/17 04/05/17 Gabapentin [Neurontin] 300 mg PO BID 01/05/17 04/05/17 Levothyroxine Sodium [Synthroid] 75 mcg PO DAILY 01/05/17 04/05/17 Multivitamins, Thera [Multivitamin 1 tab PO DAILY 01/05/17 04/05/17 (formulary)] Hydrocodone/Acetaminophen [[place] 1 tab PO TID PRN 04/05/17 04/05/17 7.5-325] Meloxicam [Mobic] 7.5 mg PO DAILY 04/05/17 04/05/17 Allergies Allergy/AdvReac Type Severity Reaction Status Date / Time aripiprazole [From Abilify] Allergy Unknown Verified 04/05/17 13:40 heparin Allergy Unknown Verified 04/05/17 13:40 diclofenac AdvReac Nausea & Verified 04/05/17 13:40 Vomiting neomycin AdvReac Rash/Hives Verified 04/05/17 13:40 Review of Systems ROS Statement: Those systems with pertinent positive or pertinent negative responses have been documented in the HPI. ROS Other: All systems not noted in ROS Statement are negative. Past Medical History Past Medical History: Hyperlipidemia, Thyroid Disorder History of Any Multi-Drug Resistant Organisms: MRSA Date of last positivie culture/infection: 2007 MDRO Source:: knee Past Surgical History: Section, Hysterectomy, Joint Replacement, Orthopedic Surgery Additional Past Surgical History / Comment(s): carpal tunnel, left knee Past Psychological History: Anxiety, Bipolar, Depression Smoking Status: Never smoker Past Alcohol Use History: None Reported Past Drug Use History: None Reported - Past Family History Father History Unknown: Yes Additional Family Medical History / Comment(s): CANCER, ADOPTED NOT MUCH FAMILY HISTORY General Exam - General Exam Comments Initial Comments: Sitting in exam room, no acute distress. Limitations: no limitations General appearance: alert, in no apparent distress Head exam: Present: atraumatic, normocephalic, normal inspection Eye exam: Present: normal appearance ENT exam: Present: normal exam Neck exam: Present: normal inspection Respiratory exam: Present: normal lung sounds bilaterally. Absent: respiratory distress Cardiovascular Exam: Present: regular rate, normal rhythm, normal heart sounds Extremities exam: Present: other (compression stocking over left leg) Back exam: Present: normal inspection Neurological exam: Present: alert, oriented X3, CN II-XII intact Psychiatric exam: Present: normal affect, normal mood Skin exam: Present: warm, dry, intact, normal color. Absent: rash Course Vital Signs 04/05/17 13:19 Temperature 97.1 F L Pulse Rate 72 Respiratory 18 Rate Blood Pressure 138/62 O2 Sat by Pulse 97 Oximetry Medical Decision Making - Medical Decision Making Patient is a 57-year-old female presents emergency room for psych evaluation. Patient medically cleared at this time be evaluated. Patient evaluated by psych and does not meet admission criteria. Patient does have a number for Mobile crisis unit. EPS feels comfortable sending patient home. Patient's psychiatry appointment has been moved up a few days. Patient also has her therapist's number. Patient states that she will call either mobile crisis unit or her therapist for any suicidal thoughts/plans. Patient states that she has no plan at this time to end her life. - Lab Data Lab Results 04/05/17 Range/Units 15:00 Urine Opiates Screen Detected H (NotDetected) Ur Oxycodone Screen Not Detected (NotDetected) Urine Methadone Screen Not Detected (NotDetected) Ur Propoxyphene Screen Not Detected (NotDetected) Ur Barbiturates Screen Not Detected (NotDetected) U Tricyclic Antidepress Not Detected (NotDetected) Ur Phencyclidine Scrn Not Detected (NotDetected) Ur Amphetamines Screen Not Detected (NotDetected) U Methamphetamines Scrn Not Detected (NotDetected) U Benzodiazepines Scrn Not Detected (NotDetected) Urine Cocaine Screen Not Detected (NotDetected) U Marijuana (THC) Screen Not Detected (NotDetected) Disposition Clinical Impression: Depression Disposition: HOME SELF-CARE Condition: Good Instructions: Depression (ED) Additional Instructions: Please follow up with psychiatry appointment. Call mobile crisis unit or therapist for any new thoughts or concerns. If any new symptom arises or symptoms worsen, return to ER as soon as possible. Referrals: Meka Magallon MD [Primary Care Provider] - 1-2 days Time of Disposition: 15:37
[2017-04-05 15:47] VITALS: BP 116/57; PULSE 62; RESP 16; TEMP 98
== END 2017-04-05 15:50 | disposition home or self-care (01) ==
LOC: EC 13:13
DX: F31.9 Bipolar disorder, unspecified (principal); F41.9 Anxiety disorder, unspecified; R45.851 Suicidal ideations; E07.9 Disorder of thyroid, unspecified; Z96.652 Presence of left artificial knee joint; Z86.14 Personal history of Methicillin resistant Staphylococcus aureus infection; Z79.1 Long term (current) use of non-steroidal anti-inflammatories (NSAID); Z79.899 Other long term (current) drug therapy; Z88.1 Allergy status to other antibiotic agents; Z88.6 Allergy status to analgesic agent; Z88.8 Allergy status to other drugs, medicaments and biological substances
CPT/HCPCS: 80306; 82075; 99284

== ENCOUNTER → 2017-06-13 | Outpatient (CLI) | payer OTHER ==
--- NOTE | 2017-06-14 13:48 | MM ---
Reason for exam: screening (asymptomatic). Last mammogram was performed 9 years and 5 months ago. History: Patient is postmenopausal. Taking estrogen for 9 months. Taking progesterone for 9 months. Physical Findings: A clinical breast exam by your physician is recommended on an annual basis and results should be correlated with mammographic findings. MG Screening Mammo w CAD Bilateral CC and MLO view(s) were taken. Prior study comparison: January 26, 2008, bilateral digital screening mammogram. September 16, 2006, bilateral screening mammogram w/CAD. The breast tissue is heterogeneously dense. This may lower the sensitivity of mammography. There is no discrete abnormality. No significant changes when compared with prior studies. ASSESSMENT: Negative, BI-RAD 1 RECOMMENDATION: Routine screening mammogram of both breasts in 1 year.
== END | disposition home or self-care (01) ==
LOC: RADMAMWWP 15:29
PROVIDERS: ATTEND Obstetrics & Gynecology
DX: Z12.31 Encounter for screening mammogram for malignant neoplasm of breast (principal)

== ENCOUNTER → 2023-08-30 | Outpatient (CLI) | payer MEDICARE, OTHER ==
[2023-08-30 21:12] LABS: Color,BF Red
[2023-08-30 21:38] LABS: Nucleated Cells, Body Fluid 278 /uL
[2023-08-30 21:44] LABS: Mononuclear WBC,Body Fluid 46 %; Polynuclear WBC,Body Fluid 51 %; Total Cells Counted,Body Fluid 100
== END | disposition home or self-care (01) ==
LOC: LABWHC1 15:03
PROVIDERS: ATTEND Orthopaedic Surgery
DX: Z96.652 Presence of left artificial knee joint (principal); T84.84XA Pain due to internal orthopedic prosthetic devices, implants and grafts, initial encounter; Y82.9 Unspecified medical devices associated with adverse incidents
CPT/HCPCS: 36415; 85379; 85652; 86140; 87070; 87075; 87205; 89050

== ENCOUNTER 2024-03-31 10:32 | Emergency (ER) | payer OTHER ==
--- NOTE | 2024-03-31 11:15 | ED ---
Abdominal Pain HPI - General Source: patient, RN notes reviewed Mode of arrival: ambulatory Limitations: no limitations - History of Present Illness MD Complaint: abdominal pain <Lorna Ocampo - Last Filed: 03/31/24 11:13> - General Source: RN notes reviewed, old records reviewed Mode of arrival: ambulatory Limitations: no limitations - History of Present Illness MD Complaint: abdominal pain -: days(s) Location: periumbilical, RUQ, epigastric Radiation: epigastric Migration to: epigastric Severity: moderate Severity scale (1-10): 7 Quality: fullness, sharp Consistency: constant Improves With: nothing Worsens With: nothing Associated Symptoms: nausea, vomiting Treatments Prior to Arrival: other (0) <Travon Alexander - Last Filed: 03/31/24 15:49> - General Chief Complaint: Abdominal Pain Stated Complaint: Abd Pain Time Seen by Provider: 03/31/24 11:13 - History of Present Illness Initial Comments: Quick Note: This is a 64-year-old female who presents to the emergency department for abdominal pain. States that for the last couple of weeks she has had pain in the epigastric and right upper quadrant region. This seems to get worse after eating. Reports nausea and feels like she has had fevers at home. Denies any changes in bowel or bladder habits. She initially went to urgent care and was advised to come to the emergency department for further evaluation of her gallbladder. (oLrna Ocampo) This is a 64-year-old female to ER for abdominal pain sent from urgent care for evaluation of possible gallbladder illness (Travon Alexander) - Related Data Home Medications Medication Instructions Recorded Confirmed Cholecalciferol [Vitamin D3] 1,000 unit PO DAILY 01/05/17 04/05/17 Docusate [Colace] 100 mg PO BID PRN 01/05/17 04/05/17 Gabapentin [Neurontin] 300 mg PO BID 01/05/17 04/05/17 Levothyroxine Sodium [Synthroid] 75 mcg PO DAILY 01/05/17 04/05/17 Multivitamins, Thera [Multivitamin 1 tab PO DAILY 01/05/17 04/05/17 (formulary)] Hydrocodone/Acetaminophen [[place] 1 tab PO TID PRN 04/05/17 04/05/17 7.5-325] Meloxicam [Mobic] 7.5 mg PO DAILY 04/05/17 04/05/17 Previous Rx's Medication Instructions Recorded Cephalexin [Keflex] 500 mg PO Q6HR #20 cap 03/31/24 Famotidine [Pepcid] 20 mg PO BID #60 tablet 03/31/24 Pantoprazole [Protonix] 40 mg PO DAILY #30 tab 03/31/24 Allergies Allergy/AdvReac Type Severity Reaction Status Date / Time aripiprazole [From Abilify] Allergy Unknown Verified 04/05/17 13:40 heparin Allergy Unknown Verified 04/05/17 13:40 diclofenac AdvReac Nausea & Verified 04/05/17 13:40 Vomiting neomycin AdvReac Rash/Hives Verified 04/05/17 13:40 Review of Systems ROS Other: All systems not noted in ROS Statement are negative. <Lorna Ocampo - Last Filed: 03/31/24 11:13> ROS Other: All systems not noted in ROS Statement are negative. <Travon Alexander - Last Filed: 03/31/24 15:49> ROS Statement: Those systems with pertinent positive or pertinent negative responses have been documented in the HPI. Past Medical History Past Medical History: Hyperlipidemia, Hypertension, Thyroid Disorder History of Any Multi-Drug Resistant Organisms: MRSA Date of last positivie culture/infection: 2007 MDRO Source:: knee Past Surgical History: Section, Hysterectomy, Joint Replacement, Orthopedic Surgery Additional Past Surgical History / Comment(s): carpal tunnel, left knee Past Psychological History: Anxiety, Bipolar, Depression Past Alcohol Use History: None Reported Past Drug Use History: None Reported - Past Family History Father History Unknown: Yes Additional Family Medical History / Comment(s): CANCER, ADOPTED NOT MUCH FAMILY HISTORY <Lorna Ocampo - Last Filed: 03/31/24 11:13> General Exam Limitations: no limitations <Lorna Ocampo - Last Filed: 03/31/24 11:13> General appearance: alert, in no apparent distress Head exam: Present: atraumatic, normocephalic, normal inspection Eye exam: Present: normal appearance, PERRL, EOMI. Absent: scleral icterus, conjunctival injection, periorbital swelling ENT exam: Present: normal exam, mucous membranes moist Neck exam: Present: normal inspection. Absent: tenderness, meningismus, lymphadenopathy Respiratory exam: Present: normal lung sounds bilaterally. Absent: respiratory distress, wheezes, rales, rhonchi, stridor Cardiovascular Exam: Present: regular rate, normal rhythm, normal heart sounds. Absent: systolic murmur, diastolic murmur, rubs, gallop, clicks GI/Abdominal exam: Present: soft, normal bowel sounds. Absent: distended, tenderness, guarding, rebound, rigid Extremities exam: Present: normal inspection, full ROM, normal capillary refill. Absent: tenderness, pedal edema, joint swelling, calf tenderness Back exam: Present: normal inspection Neurological exam: Present: alert, oriented X3, CN II-XII intact Psychiatric exam: Present: normal affect, normal mood Skin exam: Present: warm, dry, intact, normal color. Absent: rash <Travon Alexander - Last Filed: 03/31/24 15:49> - General Exam Comments Initial Comments: Visual Physical Exam Vital signs reviewed General: Well-appearing, nontoxic, no acute distress. Head: Normocephalic, atraumatic Eyes: PERRLA, EOMI ENT: Airway patent Chest: Nonlabored breathing Skin: No visual rash, normal skin tone Neuro: Alert and oriented 3 Musculoskeletal: No gross abnormalities (Lorna Ocampo) Course <Travon Alexander - Last Filed: 03/31/24 15:49> Vital Signs 03/31/24 03/31/24 03/31/24 11:00 12:48 14:42 Temperature 98.6 F Pulse Rate 83 65 71 Respiratory 16 18 16 Rate Blood Pressure 115/71 104/54 114/63 O2 Sat by Pulse 98 96 94 L Oximetry - Reevaluation(s) Reevaluation #1: 03/31/24 15:48 Records reviewed (Travon Alexander) Reevaluation #2: 03/31/24 15:48 Symptoms improved (Travon Alexander) Reevaluation #3: 03/31/24 15:48 Patient informed of results questions answered (Travon Alexander) Reevaluation #4: Was pt. sent in by a medical professional or institution (, PA, ECONOMETRICIAN, urgent care, hospital, or intermediate...) When possible be specific @ -no Did you speak to anyone other than the patient for history (EMS, parent, family, police, friend...)? What history was obtained from this source @ -no Did you review nursing and triage notes (agree or disagree)? Why? @ -agree Are old charts reviewed (outside hosp., previous admission, EMS record, old EKG, old radiological studies, urgent care reports/EKG's, intermediate records)? Report findings @ -yes Differential Diagnosis (chest pain, altered mental status, abdominal pain women, abdominal pain men, vaginal bleeding, weakness, fever, dyspnea, syncope, headache, dizziness, GI bleed, back pain, seizure, CVA, palpatations, mental health, musculoskeletal)? @ -prior EKG interpreted by me (3pts min.). @ -yes X-rays interpreted by me (1pt min.). @ -yes negative for acute disease CT interpreted by me (1pt min.). @ -no U/S interpreted by me (1pt. min.). @ -no What testing was considered but not performed or refused? (CT, X-rays, U/S, labs)? Why? @ -none What meds were considered but not given or refused? Why? @ -none Did you discuss the management of the patient with other professionals (professionals i.e. , PA, ECONOMETRICIAN, lab, RT, psych nurse, clinical social work therapist, logistics support, teacher, custodial officer, immigration case manager)? Give summary @ -no Was smoking cessation discussed for >3mins.? @ -no Was critical care preformed (if so, how long)? @ -no Were there social determinants of health that impacted care today? How? (Homelessness, low income, unemployed, alcoholism, drug addiction, transportation, low edu. Level, literacy, decrease access to med. care, fpc, rehab)? @ -none Was there de-escalation of care discussed even if they declined (Discuss DNR or withdrawal of care, Hospice)? DNR status @ -no What co-morbidities impacted this encounter? (DM, HTN, Smoking, COPD, CAD, Cancer, CVA, ARF, Chemo, Hep., AIDS, mental health diagnosis, sleep apnea, morbid obesity)? @ -none Was patient admitted / discharged? Hospital course, mention meds given and route, prescriptions, significant lab abnormalities, going to OR and other pertinent info. @ - Undiagnosed new problem with uncertain prognosis? @ -no Drug Therapy requiring intensive monitoring for toxicity (Heparin, Nitro, Insulin, Cardizem)? @ -no Were any procedures done? @ -no Diagnosis/symptom? @ - Acute, or Chronic, or Acute on Chronic? @ -Acute Uncomplicated (without systemic symptoms) or Complicated (systemic symptoms)? @ -Complicated Side effects of treatment? @ -no Exacerbation, Progression, or Severe Exacerbation? @ -exacerbation Poses a threat to life or bodily function? How? (Chest pain, USA, NM, pneumonia, PE, COPD, DKA, ARF, appy, cholecystitis, CVA, Diverticulitis, Homicidal, Suicidal, threat to staff... and all critical care pts) @ -yes (Travon Alexander) Reevaluation #5: Differential Abdominal Pain Women: Appendicitis, Cholecystitis, diverticulosis, ischemic bowel, pancreatitis, hepatitis, UTI, gastroenteritis, AAA, incarcerated hernia, bowel obstruction, constipation, inflammatory bowel, hepatitis, peptic ulcer disease, splenic infarction, perforated viscus, vulvitis, ovarian torsion, PID, kidney stone, placenta abruption, this is not meant to be an all-inclusive list (Travon Alexander) Medical Decision Making <Lorna Ocampo - Last Filed: 03/31/24 11:13> - Lab Data Result diagrams: 03/31/24 11:11 03/31/24 11:11 - EKG Data -: EKG Interpreted by Me (EKG is sinus 63 TX 141 QRS 72 QTc 391) - Radiology Data Radiology results: report reviewed (Ultrasound gallbladder negative for acute disease CT abdomen pelvis negative for acute disease), image reviewed <Travon Alexander - Last Filed: 03/31/24 15:49> - Medical Decision Making I performed the QuickNote portion of this chart. Signed Lorna Ocampo PA-C. (Lorna Ocampo) [age] female to ER for evaluation of abdominal pain gastritis here in the ER with urinary tract infection, symptoms improved patient feels improved and can be discharged home (Travon Alexander) - Lab Data Lab Results 07/06/24 07/06/24 07/06/24 Range/Units 11:11 11:11 11:11 WBC 10.3 (3.8-10.6) k/uL RBC 4.60 (3.80-5.40) m/uL Hgb 14.7 (11.4-16.0) gm/dL Hct 44.4 (34.0-46.0) % MCV 96.6 (80.0-100.0) fL MCH 32.0 (25.0-35.0) pg MCHC 33.2 (31.0-37.0) g/dL RDW 12.0 (11.5-15.5) % Plt Count (150-450) k/uL MPV 8.2 Neutrophils % (Manual) 48 % Lymphocytes % (Manual) 28 % Eosinophils % (Manual) 24 % Neutrophils # (Manual) 4.94 (1.3-7.7) k/uL Lymphocytes # (Manual) 2.88 (1.0-4.8) k/uL Eosinophils # (Manual) 2.47 H (0-0.7) k/uL Nucleated RBCs 0 (0-0) /100 WBC Manual Slide Review Performed Sodium 137 (137-145) mmol/L Potassium 5.1 (3.5-5.1) mmol/L Chloride 104 (98-107) mmol/L Carbon Dioxide 26 (22-30) mmol/L Anion Gap 7 mmol/L BUN 20 H (7-17) mg/dL Creatinine 0.82 (0.52-1.04) mg/dL Est GFR (CKD-EPI)AfAm 88 (>60 ml/min/1.73 sqM) Est GFR (CKD-EPI)NonAf 77 (>60 ml/min/1.73 sqM) Glucose 91 (74-99) mg/dL Calcium 9.5 (8.4-10.2) mg/dL Total Bilirubin 0.7 (0.2-1.3) mg/dL AST 51 H (14-36) U/L ALT 36 H (4-34) U/L Alkaline Phosphatase 80 (38-126) U/L Troponin I <0.012 (0.000-0.034) ng/mL Total Protein 7.0 (6.3-8.2) g/dL Albumin 4.5 (3.5-5.0) g/dL Amylase 49 (30-110) U/L Lipase 205 (23-300) U/L Urine Color Urine Appearance (Clear) Urine pH (5.0-8.0) Ur Specific [place] (1.001-1.035) Urine Protein (Negative) Urine Glucose (UA) (Negative) Urine Ketones (Negative) Urine Blood (Negative) Urine Nitrite (Negative) Urine Bilirubin (Negative) Urine Urobilinogen (<2.0) mg/dL Ur Leukocyte Esterase (Negative) Urine RBC (0-5) /hpf Urine WBC (0-5) /hpf Ur Squamous Epith Cells (0-4) /hpf Urine Bacteria (None) /hpf Urine Mucus (None) /hpf 03/31/24 Range/Units 12:55 WBC (3.8-10.6) k/uL RBC (3.80-5.40) m/uL Hgb (11.4-16.0) gm/dL Hct (34.0-46.0) % MCV (80.0-100.0) fL MCH (25.0-35.0) pg MCHC (31.0-37.0) g/dL RDW (11.5-15.5) % Plt Count (150-450) k/uL MPV Neutrophils % (Manual) % Lymphocytes % (Manual) % Eosinophils % (Manual) % Neutrophils # (Manual) (1.3-7.7) k/uL Lymphocytes # (Manual) (1.0-4.8) k/uL Eosinophils # (Manual) (0-0.7) k/uL Nucleated RBCs (0-0) /100 WBC Manual Slide Review Sodium (137-145) mmol/L Potassium (3.5-5.1) mmol/L Chloride (98-107) mmol/L Carbon Dioxide (22-30) mmol/L Anion Gap mmol/L BUN (7-17) mg/dL Creatinine (0.52-1.04) mg/dL Est GFR (CKD-EPI)AfAm (>60 ml/min/1.73 sqM) Est GFR (CKD-EPI)NonAf (>60 ml/min/1.73 sqM) Glucose (74-99) mg/dL Calcium (8.4-10.2) mg/dL Total Bilirubin (0.2-1.3) mg/dL AST (14-36) U/L ALT (4-34) U/L Alkaline Phosphatase (38-126) U/L Troponin I (0.000-0.034) ng/mL Total Protein (6.3-8.2) g/dL Albumin (3.5-5.0) g/dL Amylase (30-110) U/L Lipase (23-300) U/L Urine Color Light Yellow Urine Appearance Clear (Clear) Urine pH 6.0 (5.0-8.0) Ur Specific [place] 1.022 (1.001-1.035) Urine Protein Negative (Negative) Urine Glucose (UA) Negative (Negative) Urine Ketones Negative (Negative) Urine Blood Negative (Negative) Urine Nitrite Negative (Negative) Urine Bilirubin Negative (Negative) Urine Urobilinogen <2.0 (<2.0) mg/dL Ur Leukocyte Esterase Large H (Negative) Urine RBC 4 (0-5) /hpf Urine WBC 13 H (0-5) /hpf Ur Squamous Epith Cells <1 (0-4) /hpf Urine Bacteria Rare H (None) /hpf Urine Mucus Rare H (None) /hpf Disposition <Lorna Ocampo - Last Filed: 03/31/24 11:13> Is patient prescribed a controlled substance at d/c from ED?: No Time of Disposition: 15:40 <Travon Alexander - Last Filed: 03/31/24 15:49> Clinical Impression: Abdominal pain, Gastritis, Abdominal colic, UTI (urinary tract infection) Disposition: HOME SELF-CARE Condition: Good Instructions (If sedation given, give patient instructions): Abdominal Pain (ED), Peptic Ulcer (ED), Gastritis (ED), Urinary Tract Infection in Women (ED) Prescriptions: Cephalexin [Keflex] 500 mg PO Q6HR #20 cap Famotidine [Pepcid] 20 mg PO BID #60 tablet Pantoprazole [Protonix] 40 mg PO DAILY #30 tab Referrals: None,Stated [Primary Care Provider] - 1-2 days
[2024-03-31 11:21] LABS: HCT 44.4 % (34.0-46.0); HGB 14.7 gm/dL (11.4-16.0); MCHC 33.2 g/dL (31.0-37.0); MCV 96.6 fL (80.0-100.0); Mean Platelet Volume 8.2; WBC 10.3 k/uL (3.8-10.6)
[2024-03-31 11:31] LABS: ALT 36 U/L (4-34); African American GFR (CKD) 88 (>60 ml/min/1.73 sqM); Albumin 4.5 g/dL (3.5-5.0); Amylase 49 U/L (30-110); Anion Gap 7 mmol/L; Blood Urea Nitrogen 20 mg/dL (7-17); Calcium 9.5 mg/dL (8.4-10.2); Carbon Dioxide 26 mmol/L (22-30); Chloride 104 mmol/L (98-107); Glucose 91 mg/dL (74-99); Lipase 205 U/L (23-300); Non-African American GFR(CKD) 77 (>60 ml/min/1.73 sqM); Sodium 137 mmol/L (137-145); Total Bilirubin 0.7 mg/dL (0.2-1.3)
[2024-03-31 11:33] LABS: AST 51 U/L (14-36); Alkaline Phosphatase 80 U/L (38-126); Potassium 5.1 mmol/L (3.5-5.1)
[2024-03-31 12:05] LABS: Eosinophils # (M) 2.47 k/uL (0-0.7); Lymphocytes # (M) 2.88 k/uL (1.0-4.8); Neutrophils # (M) 4.94 k/uL (1.3-7.7); Neutrophils % (M) 48 %; Nucleated Red Blood Cells 0 /100 WBC (0-0); Total Cells Counted 100
--- NOTE | 2024-03-31 12:30 | US ---
EXAMINATION TYPE: US gallbladder DATE OF EXAM: 03/31/2024 COMPARISON: NONE CLINICAL INDICATION: Female, 64 years old with history of RUQ pain; RUQ pain, vomiting TECHNIQUE: Multiple sonographic images of the right upper quadrant are obtained. FINDINGS: EXAM MEASUREMENTS: Liver Length: 13.2 cm Gallbladder Wall: Surgically absent CBD: 0.5 cm Right Kidney: 8.8 x 4.7 x 4.5 cm Pancreas: Obscured by bowel gas. Liver: wnl as visualized Gallbladder: not visualized, surgically absent as noted on prior exams Evidence for sonographic Mead's sign: no CBD: wnl Right Kidney: small in size. no evidence of hydronephrosis IMPRESSION: No evidence for acute process.
[2024-03-31] MEDS: HYDROmorphone 0.5 MG/0.5 ML SYRINGE IVP STA (12:50)
[2024-03-31 13:44] LABS: Appearance,Urine Clear (Clear); Bacteria,Urine Rare /hpf; Bilirubin,Urine Negative (Negative); Blood,Urine Negative (Negative); Color,Urine Light Yellow; Glucose,Urine (UA) Negative (Negative); Ketones,Urine Negative (Negative); Leukocyte Esterase,Urine Large (Negative); Mucus,Urine Rare /hpf; Nitrite,Urine Negative (Negative); Protein,Urine Negative (Negative); RBC,Urine 4 /hpf (0-5); Specific Gravity,Urine 1.022 (1.001-1.035); Squamous Epithelial Cell,Urine <1 /hpf (0-4); Urobilinogen,Urine <2.0 mg/dL (<2.0); WBC,Urine 13 /hpf (0-5)
[2024-03-31] MEDS: ONDANSETRON 4 MG/2 ML VIAL IVP STA (13:49)
[2024-03-31] MEDS: SODIUM CHLORIDE 0.9% 1,000 ML IV STA (13:50)
[2024-03-31 14:45] VITALS: PULSE 71; RESP 16
[2024-03-31] MEDS: MORPHINE SULFATE 4 MG/ML SYRINGE IVP STA (15:04)
--- NOTE | 2024-03-31 15:08 | CT ---
EXAMINATION TYPE: CT abdomen pelvis w con CT DLP: 638 mGycm, Automated exposure control for dose reduction was used. DATE OF EXAM: 03/31/2024 2:27 PM COMPARISON: 02/28/2017 CLINICAL INDICATION:Female, 64 years old with history of pain; stabbing umbilical abd pain TECHNIQUE: Axial CT abdomen pelvis w con;Sagittal and coronal reformats were created on a separate w orkstation. Contrast used:100ml mL of Isovue 300 with IV Contrast, (none if empty) Oral contrast used: without Oral Contrast (none if empty) FINDINGS: LOWER CHEST: Unremarkable ABDOMEN LIVER: Unremarkable GALLBLADDER AND BILE DUCTS: Gallbladder is surgically absent with mild intrahepatic and extra hepatic biliary dilatation likely physiologic and a postcholecystectomy change. No evidence of choledocholit hiasis. PANCREAS: Unremarkable. SPLEEN: Unremarkable. ADRENAL GLANDS: Unremarkable. KIDNEYS AND URETERS: No evidence of hydronephrosis or renal calculus. The ureters are unremarkable. PELVIS BLADDER: Unremarkable REPRODUCTIVE: The uterus is surgically absent. ABDOMEN & PELVIS STOMACH AND BOWEL: No evidence of bowel obstruction. Scattered colonic diverticula. The appendix is v isualized and normal. Moderate amount stool throughout the colon. PERITONEUM/RETROPERITONEUM: No evidence of pneumoperitoneum or free fluid. VASCULATURE: No evidence of aortic aneurysm. MUSCULOSKELETAL: No acute osseous abnormalities LYMPH NODES: No gross evidence for lymphadenopathy. SOFT TISSUE/ABDOMINAL WALL: Unremarkable IMPRESSION: 1. No evidence for acute process. The appendix is normal. No obstructive uropathy or renal calculus. 2. Moderate amount stool in the colon.
[2024-03-31] MEDS: cefTRIAXone IN SWFI 1,000 MG/10 ML SYRINGE IVP STA (15:55)
[2024-03-31] MEDS: PANTOPRAZOLE 40 MG/10 ML VIAL IVP STA (15:55)
[2024-03-31] MEDS: traMADol 50 MG STARTER PACK 3 TAB BTL PO STA (15:57)
[2024-03-31] MEDS: CEPHALEXIN 500MG STARTER PACK 4 CAP BTL PO STA (15:57)
[2024-03-31] MEDS: ONDANSETRON 4 MG ODT STARTER PACK 2 TAB BTL PO STA (15:57)
[2024-03-31 16:08] VITALS: BP 112/56; TEMP 98.7
== END 2024-03-31 16:08 | disposition home or self-care (01) ==
LOC: EC 10:32
DX: N39.0 Urinary tract infection, site not specified (principal); K29.70 Gastritis, unspecified, without bleeding; Z88.8 Allergy status to other drugs, medicaments and biological substances
CPT/HCPCS: 36415; 93005; 80053; 82150; 83690; 84484; 85025; 81001; 76705; 74177; 99284; 96374; 96375 ×4; 96361 ×2; J2270; J2405; J0696; S0119; J1170; Q9967; J2470

== ENCOUNTER 2024-06-30 14:57 | Observation (INO) | payer MEDICARE, OTHER ==
[2024-06-30 16:03] LABS: Basophils % (A) 1 %; Eosinophils # (A) 0.7 k/uL (0-0.7); Eosinophils % (A) 10 %; HCT 41.5 % (34.0-46.0); HGB 13.7 gm/dL (11.4-16.0); Lymphocytes # (A) 1.7 k/uL (1.0-4.8); Lymphocytes % (A) 25 %; MCH 31.4 pg (25.0-35.0); MCV 95.3 fL (80.0-100.0); Mean Platelet Volume 7.5; Monocytes # (A) 0.5 k/uL (0-1.0); Monocytes % (A) 7 %; Neutrophils # (A) 3.7 k/uL (1.3-7.7); Neutrophils % (A) 55 %; Platelet Count 278 k/uL (150-450); RBC 4.35 m/uL (3.80-5.40); WBC 6.8 k/uL (3.8-10.6)
--- NOTE | 2024-06-30 16:08 | ED ---
General Adult HPI - General Chief complaint: Chest Pain Stated complaint: Chest Pain/SOB Time Seen by Provider: 06/30/24 15:10 Source: patient, RN notes reviewed, old records reviewed Mode of arrival: wheelchair - History of Present Illness Initial comments: This is a 64-year-old female who presents to the emergency department complaining of right-sided chest pain starting 2 days ago. Patient states now the pain wraps around the back and into the other side of her chest. Patient states that she also is having some shortness of breath. Patient states about 2 weeks ago she had surgery on her foot. Patient denies any fever chills. Patient denies any palpitations. Patient Nuys abdominal pain patient has nausea vomiting or diarrhea. - Related Data Home Medications Medication Instructions Recorded Confirmed Levothyroxine Sodium [Synthroid] 75 mcg PO DAILY 01/05/17 06/30/24 Atorvastatin [Lipitor] 80 mg PO HS 06/30/24 06/30/24 FLUoxetine HCL [PROzac] 60 mg PO DAILY 06/30/24 06/30/24 Fenofibrate Nanocrystallized 48 mg PO HS 06/30/24 06/30/24 [Fenofibrate] Sucralfate [Carafate] 1 gm PO Q8H PRN 06/30/24 06/30/24 amLODIPine [Norvasc] 5 mg PO DAILY 06/30/24 06/30/24 lamoTRIgine [LaMICtal] 150 mg PO HS 06/30/24 06/30/24 lisinopriL [Zestril] 5 mg PO DAILY 06/30/24 06/30/24 rOPINIRole HCL [Requip] 0.5 mg PO HS 06/30/24 06/30/24 traZODone HCL [Desyrel] 12.5 mg PO HS PRN 06/30/24 06/30/24 Previous Rx's Medication Instructions Recorded Pantoprazole [Protonix] 40 mg PO DAILY #30 tab 03/31/24 Allergies Allergy/AdvReac Type Severity Reaction Status Date / Time aripiprazole [From Abilify] Allergy Unknown Verified 06/30/24 16:23 heparin Allergy Unknown Verified 06/30/24 16:23 diclofenac AdvReac Nausea & Verified 06/30/24 16:23 Vomiting neomycin AdvReac Rash/Hives Verified 06/30/24 16:23 Review of Systems ROS Statement: Those systems with pertinent positive or pertinent negative responses have been documented in the HPI. ROS Other: All systems not noted in ROS Statement are negative. Past Medical History Past Medical History: Hyperlipidemia, Hypertension, Thyroid Disorder History of Any Multi-Drug Resistant Organisms: MRSA Date of last positivie culture/infection: 2007 MDRO Source:: knee Past Surgical History: Section, Hysterectomy, Joint Replacement, Orthopedic Surgery Additional Past Surgical History / Comment(s): carpal tunnel, left knee Past Psychological History: Anxiety, Bipolar, Depression Smoking Status: Never smoker Past Alcohol Use History: None Reported Past Drug Use History: None Reported - Past Family History Father History Unknown: Yes Additional Family Medical History / Comment(s): CANCER, ADOPTED NOT MUCH FAMILY HISTORY General Exam - General Exam Comments Initial Comments: GENERAL: Patient is well-developed and well-nourished. Patient is nontoxic and well- hydrated and is in no acute distress. ENT: Neck is soft and supple. No significant lymphadenopathy is noted. Oropharynx is clear. Moist mucous membranes. Neck has full range of motion without eliciting any pain. EYES: The sclera were anicteric and conjunctiva were pink and moist. Extraocular movements were intact and pupils were equal round and reactive to light. Eyelids were unremarkable. PULMONARY: Unlabored respirations. Good breath sounds bilaterally. No audible rales rhonchi or wheezing was noted. CARDIOVASCULAR: There is a regular rate and rhythm without any murmurs gallops or rubs. Pain is not reproducible ABDOMEN: Soft and nontender with normal bowel sounds. SKIN: Skin is clear with no lesions or rashes and otherwise unremarkable. NEUROLOGIC: Patient is alert and oriented x3. Cranial nerves II through XII are grossly intact. Motor and sensory are also intact. Normal speech, volume and content. Symmetrical smile. MUSCULOSKELETAL: Normal extremities with adequate strength and full range of motion. LYMPHATICS: No significant lymphadenopathy is noted PSYCHIATRIC: Normal psychiatric evaluation. Course Vital Signs 06/30/24 06/30/24 06/30/24 15:08 15:43 17:02 Temperature 98 F Pulse Rate 62 56 L 57 L Respiratory 18 18 22 Rate Blood Pressure 96/60 113/72 128/68 O2 Sat by Pulse 100 97 99 Oximetry Medical Decision Making - Medical Decision Making EKG is interpreted by myself. EKG shows a sinus bradycardia 58 bpm NM was 144 QRS is 81 QT interval 394 QTc is 390. Patient's EKG shows no ST segment elevation or depression. Was pt. sent in by a medical professional or institution ([facility] Randhawa, [facility], urgent care, hospital, or custodial...) When possible be specific @ -[No] Did you speak to anyone other than the patient for history (EMS, parent, family, police, friend...)? What history was obtained from this source @ -[No] Did you review nursing and triage notes (agree or disagree)? Why? @ -[I reviewed and agree with nursing and triage notes] Were old charts reviewed (outside hosp., previous admission, EMS record, old EKG, old radiological studies, urgent care reports/EKG's, custodial records)? Report findings @ -[No old charts were reviewed] Differential Diagnosis? @ -Differential Chest Pain: Stable Angina, Unstable Angina, STEMI, NSTEMI Aortic Dissection, Pneumothorax, Musculoskeletal, Esophageal Spasm GERD, Cholecystitis, Pancreatitis, Zoster, this is not meant to be an all-inclusive list. EKG interpreted by me (3pts min.). @ -[As above] X-rays interpreted by me (1pt min.). @ -Chest x-ray shows no acute abnormality CT interpreted by me (1pt min.). @ -CT of the chest shows no PE U/S interpreted by me (1pt. min.). @ -[None done] What testing was considered but not performed or refused? (CT, X-rays, U/S, labs)? Why? @ -[None] What meds were considered but not given or refused? Why? @ -[None] Did you discuss the management of the patient with other professionals (professionals i.e. SELAM Randhawa, [facility], lab, RT, psych nurse, social services assistant, retail sales merchandiser development, teacher, privacy officer, rn field case manager)? Give summary @ -Spoke with Dr. Segura he agreed to admit the patient Was smoking cessation discussed for >3mins.? @ -[No] Was critical care preformed (if so, how long)? @ -[No] Were there social determinants of health that impacted care today? How? (H omelessness, low income, unemployed, alcoholism, drug addiction, transportation, low edu. Level, literacy, decrease access to med. care, senior care, rehab)? @ -[No] Was there de-escalation of care discussed even if they declined (Discuss DNR or withdrawal of care, Hospice)? DNR status @ -[No] What co-morbidities impacted this encounter? (DM, HTN, Smoking, COPD, CAD, Cancer, CVA, ARF, Chemo, Hep., AIDS, mental health diagnosis, sleep apnea, morbid obesity)? @ -[None] Was patient admitted / discharged? Hospital course, mention meds given and route, prescriptions, significant lab abnormalities, going to OR and other pertinent info. @ -Patient did get Toradol for pain while she was here it did not have much effect. Patient continued to have some chest pain. I spoke with Dr. Segura he agreed to admit the patient. Patient will be admitted with a cardiology consult Undiagnosed new problem with uncertain prognosis? @ -[No] Drug Therapy requiring intensive monitoring for toxicity (Heparin, Nitro, In sulin, Cardizem)? @ -[No] Were any procedures done? @ -[No] Diagnosis/symptom? @ -Chest pain Acute, or Chronic, or Acute on Chronic? @ -Acute Uncomplicated (without systemic symptoms) or Complicated (systemic symptoms)? @ -Complicated Side effects of treatment? @ -[No] Exacerbation, Progression, or Severe Exacerbation? @ -[No] Poses a threat to life or bodily function? How? (Chest pain, USA, RI, pneumonia, PE, COPD, DKA, ARF, appy, cholecystitis, CVA, Diverticulitis, Homicidal, Suicidal, threat to staff... and all critical care pts) @ -Yes this could lead to an RI and endorgan dysfunction - Lab Data Result diagrams: 06/30/24 15:33 06/30/24 15:33 Lab Results 06/30/24 06/30/24 06/30/24 Range/Units 15:33 15:33 15:33 WBC 6.8 (3.8-10.6) k/uL RBC 4.35 (3.80-5.40) m/uL Hgb 13.7 (11.4-16.0) gm/dL Hct 41.5 (34.0-46.0) % MCV 95.3 (80.0-100.0) fL MCH 31.4 (25.0-35.0) pg MCHC 33.0 (31.0-37.0) g/dL RDW 12.0 (11.5-15.5) % Plt Count 278 (150-450) k/uL MPV 7.5 Neutrophils % 55 % Lymphocytes % 25 % Monocytes % 7 % Eosinophils % 10 % Basophils % 1 % Neutrophils # 3.7 (1.3-7.7) k/uL Lymphocytes # 1.7 (1.0-4.8) k/uL Monocytes # 0.5 (0-1.0) k/uL Eosinophils # 0.7 (0-0.7) k/uL Basophils # 0.0 (0-0.2) k/uL PT 11.9 (10.0-12.5) sec INR 1.1 (<1.2) APTT 24.8 (22.0-30.0) sec D-Dimer 2.27 H (<0.60) mg/L FEU Sodium 139 (137-145) mmol/L Potassium 4.2 (3.5-5.1) mmol/L Chloride 102 (98-107) mmol/L Carbon Dioxide 31 H (22-30) mmol/L Anion Gap 6 mmol/L BUN 17 (7-17) mg/dL Creatinine 1.06 H (0.52-1.04) mg/dL Est GFR (CKD-EPI)AfAm 65 (>60 ml/min/1.73 sqM) Est GFR (CKD-EPI)NonAf 56 (>60 ml/min/1.73 sqM) Glucose 96 (74-99) mg/dL Calcium 10.5 H (8.4-10.2) mg/dL Magnesium 1.9 (1.6-2.3) mg/dL Total Bilirubin 0.4 (0.2-1.3) mg/dL AST 30 (14-36) U/L ALT 27 (4-34) U/L Alkaline Phosphatase 81 (38-126) U/L Troponin I (0.000-0.034) ng/mL Total Protein 6.8 (6.3-8.2) g/dL Albumin 4.4 (3.5-5.0) g/dL 06/30/24 Range/Units 15:33 WBC (3.8-10.6) k/uL RBC (3.80-5.40) m/uL Hgb (11.4-16.0) gm/dL Hct (34.0-46.0) % MCV (80.0-100.0) fL MCH (25.0-35.0) pg MCHC (31.0-37.0) g/dL RDW (11.5-15.5) % Plt Count (150-450) k/uL MPV Neutrophils % % Lymphocytes % % Monocytes % % Eosinophils % % Basophils % % Neutrophils # (1.3-7.7) k/uL Lymphocytes # (1.0-4.8) k/uL Monocytes # (0-1.0) k/uL Eosinophils # (0-0.7) k/uL Basophils # (0-0.2) k/uL PT (10.0-12.5) sec INR (<1.2) APTT (22.0-30.0) sec D-Dimer (<0.60) mg/L FEU Sodium (137-145) mmol/L Potassium (3.5-5.1) mmol/L Chloride (98-107) mmol/L Carbon Dioxide (22-30) mmol/L Anion Gap mmol/L BUN (7-17) mg/dL Creatinine (0.52-1.04) mg/dL Est GFR (CKD-EPI)AfAm (>60 ml/min/1.73 sqM) Est GFR (CKD-EPI)NonAf (>60 ml/min/1.73 sqM) Glucose (74-99) mg/dL Calcium (8.4-10.2) mg/dL Magnesium (1.6-2.3) mg/dL Total Bilirubin (0.2-1.3) mg/dL AST (14-36) U/L ALT (4-34) U/L Alkaline Phosphatase (38-126) U/L Troponin I <0.012 (0.000-0.034) ng/mL Total Protein (6.3-8.2) g/dL Albumin (3.5-5.0) g/dL Disposition Clinical Impression: Chest pain Disposition: ADMITTED IP TO THIS [facility] Referrals: Suzi Paiz MD [Primary Care Provider] - 1-2 days Time of Disposition: 19:34
[2024-06-30 16:11] LABS: ALT 27 U/L (4-34); AST 30 U/L (14-36); African American GFR (CKD) 65 (>60 ml/min/1.73 sqM); Albumin 4.4 g/dL (3.5-5.0); Alkaline Phosphatase 81 U/L (38-126); Anion Gap 6 mmol/L; Blood Urea Nitrogen 17 mg/dL (7-17); Calcium 10.5 mg/dL (8.4-10.2); Carbon Dioxide 31 mmol/L (22-30); Chloride 102 mmol/L (98-107); Glucose 96 mg/dL (74-99); Magnesium 1.9 mg/dL (1.6-2.3); Non-African American GFR(CKD) 56 (>60 ml/min/1.73 sqM); Potassium 4.2 mmol/L (3.5-5.1); Sodium 139 mmol/L (137-145); Total Bilirubin 0.4 mg/dL (0.2-1.3); Total Protein 6.8 g/dL (6.3-8.2)
[2024-06-30 16:16] LABS: INR 1.1 (<1.2); Partial Thromboplastin Time 24.8 sec (22.0-30.0); Prothrombin Time 11.9 sec (10.0-12.5)
--- NOTE | 2024-06-30 16:29 | XR ---
EXAMINATION TYPE: XR chest 2V DATE OF EXAM: 06/30/2024 3:53 PM CLINICAL INDICATION: Female, 64 years old with history of Chest Pain; COMPARISON: Chest radiographs from 12/23/2016 TECHNIQUE: XR chest 2V Frontal view of the chest. FINDINGS: Lungs/Pleura: There is no evidence of pleural effusion, focal consolidation, or pneumothorax. Pulmonary vascularity: Unremarkable. Heart/mediastinum: Cardiomediastinal silhouette is unremarkable. Musculoskeletal: No acute osseous pathology. Shoulder arthroplasty appears intact. Other findings: None IMPRESSION: No acute cardiopulmonary disease/process. [facility], , 06/30/2024 4:26 PM
[2024-06-30] MEDS: KETOROLAC 15 MG/ML 1 ML VIAL IVP STA (17:03)
--- NOTE | 2024-06-30 17:27 | CT ---
EXAMINATION TYPE: CT chest angio for PE CT DLP: 282.4 mGycm, Automated exposure control for dose reduction was used. DATE OF EXAM: 06/30/2024 4:53 PM COMPARISON: Chest radiograph from same day. CLINICAL INDICATION: Female, 64 years old with history of Elevated D-dimer chest pain and difficulty breathi; Chest pain and sob x 3 days. Positive dimer. TECHNIQUE/CONTRAST: CTA scan of the thorax is performed with IV Contrast, patient injected with 80cc mL of Isovue 370, KS P images are created and reviewed these are created on a separate workstation.. FINDINGS: Pulmonary Artery: There is no evidence for a filling defect within the pulmonary vasculature to sugge st acute pulmonary embolism. The pulmonary artery is of normal size. Lungs/Pleura: No evidence of focal consolidation, pleural effusion or pneumothorax. Calcified left lo wer lobe medial lung nodule measuring less than 6 mm. Airway: Large airways are patent. Heart: Heart is within normal limits for size. Vasculature: No evidence of aortic aneurysm. Mediastinum: No gross evidence of adenopathy. Musculoskeletal: No acute osseous abnormalities Soft Tissues/lymph nodes: Unremarkable. Lower neck: No significant findings. Upper Abdomen: No significant findings. IMPRESSION: No evidence of pulmonary embolism. No evidence for acute process. Follow up recommendations for incidental pulmonary nodules, if there are any, are per [employer] or [employer]. https://radiopaedia.org/articles/rgneesncuj-iywfqju-fmwoxkcju-[email or web address]?lang=us [facility], , 06/30/2024 5:25 PM
[2024-06-30] MEDS ORDERED: NITROGLYCERIN SL TABS 0.4 MG TAB SUBLINGUAL PRN (19:35)
[2024-06-30] MEDS: HYDROmorphone 0.5 MG/0.5 ML SYRINGE IVP STA (20:24)
[2024-06-30] MEDS ORDERED: traZODone HCL 50 MG TAB PO PRN (22:38)
--- NOTE | 2024-06-30 22:43 | P.HPIM ---
History of Present Illness H&P Date: 06/30/24 Chief Complaint: Chest pain Patient is a 64-year-old female with past medical history of hyperlipidemia, hypertension presented to the ED with chest pain. The patient mentions the sharp right sided chest pain started 2 days ago. The pain was radiating to the right upper back. The next day her pain started radiating to the left side of her chest and the left upper back as well, back pain is stabbing in nature. The pain started while she was resting and it is a 9 out of 10 severity, though it is constant and has been worsening over the past couple of days, worsens on movement and the nitroglycerin did not help her pain. She denies having any such episodes previously. She also complains of associated shortness of breath, lightheadedness, diaphoresis and nausea. She reports having surgery on her right foot 2 weeks ago and uses a walker to ambulate. Denies fever, chills, coughing, abdominal pain, vomiting, diarrhea, dysuria. Vitals: T 98 F, P 56 bpm, RR 18, BP 113/72, O2 sat 97% on room air Labs: hemoglobin 13.7, WBC 6.8, PT 11.9, INR 1.1, bicarb 31, creatinine 1.06, calcium 10.5 ED documentation reviewed and case discussed with ED provider. Labs show D- dimer 2.27, troponin x2 <0.012. EKG shows sinus bradycardia, rate 58 bpm, QTc 390 ms. Chest x-ray shows no acute cardiopulmonary disease process. Chest CTA shows no evidence of pulmonary embolism or acute process. In the ED she was treated with nitroglycerin in sublingual tablet, Toradol, Dilaudid. Review of systems: Pertinent positives and negatives as discussed in HPI, a complete review of systems was performed and all other systems are negative. PMH: Hypertension, hyperlipidemia PSH: Orthopedic surgery FMH: None Allergies: Heparin, aripiprazole Social history: Tobacco: Former smoker Alcohol: Quit 24 years ago Recreational drugs: Denies use Sick contacts: None Physical examination: Vital signs reviewed General: non toxic, no distress, appears at stated age, overweight Derm: no unusual rashes/lesions, warm Head: atraumatic, normocephalic, symmetric Eyes: EOMI, anicteric sclera ENT: Nose and ears atraumatic Cardiovascular: S1S2 reg, no murmur, no edema Lungs: CTA bilateral, no rhonchi, no rales, no accessory muscle use Abdominal: soft, nontender to palpation, no guarding Ext: muscle strength 5 out of 5 in all extremities grossly, no gross muscle atrophy, no contractures, RLE brace in place with ankle strength testing limited, albeit patient moving toes Neuro: CN II-XI grossly intact, no gross focal neuro deficits Psych: Alert, oriented, appropriate affect Assessment/Plan: Patient is a 64-year-old female with past medical history of hypertension and hyperlipidemia who presented to the ED with chest pain and is being admitted for further cardiac workup. #. Chest pain, r/o ACS Troponin x 2 <0.012, D-dimer 2.27 EKG shows sinus bradycardia, rate 58 bpm, QTc 390 ms Chest x-ray shows no acute cardiopulmonary disease process. Chest CTA shows no evidence of pulmonary embolism or acute process. Continue with aspirin 325 mg p.o. daily, nitroglycerin sublingual tablet 0.4 mg Q5M as needed, nitroglycerin ointment 1 inch topical every 6 hours Continue home med atorvastatin 80 mg p.o. at bedtime Lipid panel ordered in the ED Continue to trend troponin Continue telemetry monitoring Cardiology consulted #. Hypertension Continue amlodipine 5 mg p.o. daily, lisinopril 5 mg p.o. daily #. Hyperlipidemia Continue atorvastatin 80 mg p.o. at bedtime, fenofibrate 40 mg p.o. at bedtime #. Hypothyroidism Continue levothyroxine 75 mcg p.o. daily TSH today 1.120 #. History of restless leg syndrome Continue ropinirole 0.5 mg p.o. at bedtime #. History of anxiety/depression Continue fluoxetine 60 mg p.o. daily, trazodone 12.5 mg p.o. at bedtime #. History of GERD Continue Protonix 40 mg p.o. daily #. History of seizure disorder Continue lamotrigine 150 p.o. at bedtime F: None E: Replete as required N: Heart healthy diet A: Ambulatory DVT prophylaxis: SCD The patient is admitted with an anticipated less than 2 midnight stay for evaluation of chest pain CODE STATUS: No code (Patient mentions she doesn't want to be a burden on her family as she isn't very close to them) Discussed with: Patient Anticipated discharge place: Home Past Medical History Past Medical History: Hyperlipidemia, Hypertension, Thyroid Disorder History of Any Multi-Drug Resistant Organisms: MRSA Date of last positivie culture/infection: 2007 MDRO Source:: knee Past Surgical History: Section, Hysterectomy, Joint Replacement, Orthopedic Surgery Additional Past Surgical History / Comment(s): carpal tunnel, left knee replacement x3, right knee replacement x1, arthroscopic sx on right shoulder, t otal right shoulder replacement Past Psychological History: Anxiety, Bipolar, Depression Smoking Status: Never smoker Past Alcohol Use History: None Reported Past Drug Use History: None Reported - Past Family History Father History Unknown: Yes Additional Family Medical History / Comment(s): CANCER, ADOPTED NOT MUCH FAMILY HISTORY Medications and Allergies Home Medications Medication Instructions Recorded Confirmed Type Levothyroxine Sodium [Synthroid] 75 mcg PO DAILY 01/05/17 06/30/24 History Pantoprazole [Protonix] 40 mg PO DAILY #30 tab 03/31/24 06/30/24 Rx Atorvastatin [Lipitor] 80 mg PO HS 06/30/24 06/30/24 History FLUoxetine HCL [PROzac] 60 mg PO DAILY 06/30/24 06/30/24 History Fenofibrate Nanocrystallized 48 mg PO HS 06/30/24 06/30/24 History [Fenofibrate] Sucralfate [Carafate] 1 gm PO Q8H PRN 06/30/24 06/30/24 History amLODIPine [Norvasc] 5 mg PO DAILY 06/30/24 06/30/24 History lamoTRIgine [LaMICtal] 150 mg PO HS 06/30/24 06/30/24 History lisinopriL [Zestril] 5 mg PO DAILY 06/30/24 06/30/24 History rOPINIRole HCL [Requip] 0.5 mg PO HS 06/30/24 06/30/24 History traZODone HCL [Desyrel] 12.5 mg PO HS PRN 06/30/24 06/30/24 History Allergies Allergy/AdvReac Type Severity Reaction Status Date / Time aripiprazole [From Abilify] Allergy Unknown Verified 06/30/24 16:23 heparin Allergy Unknown Verified 06/30/24 16:23 diclofenac AdvReac Nausea & Verified 06/30/24 16:23 Vomiting neomycin AdvReac Rash/Hives Verified 06/30/24 16:23 Physical Exam Vitals: Vital Signs Temp Pulse Pulse Resp BP BP Pulse Ox 06/30/24 20:53 97.5 F L 64 16 120/74 96 06/30/24 20:31 98 F 70 18 115/65 98 06/30/24 20:00 59 L 18 122/64 97 06/30/24 19:00 59 L 16 121/64 97 06/30/24 17:02 57 L 22 128/68 99 06/30/24 15:43 56 L 18 113/72 97 06/30/24 15:08 98 F 62 18 96/60 100 Intake and Output 06/30/24 06/30/24 06/30/24 06:59 14:59 22:59 Other: Weight 65.317 kg Results CBC & Chem 7: 06/30/24 15:33 06/30/24 15:33 Labs: Abnormal Lab Results - Last 24 Hours (Table) 06/30/24 06/30/24 Range/Units 15:33 15:33 D-Dimer 2.27 H (<0.60) mg/L FEU Carbon Dioxide 31 H (22-30) mmol/L Creatinine 1.06 H (0.52-1.04) mg/dL Calcium 10.5 H (8.4-10.2) mg/dL Thrombosis Risk Factor Assmnt - Choose All That Apply Each Factor Represents 1 point: Obesity (BMI >25) Each Risk Factor Represents 2 Points: Age 61-74 years Thrombosis Risk Factor Assessment Total Risk Factor Score: 3 Thrombosis Risk Factor Assessment Level: Moderate Risk
[2024-07-01] MEDS: NITROGLYCERIN OINT 1 INCH/GM PACKET TOPICAL SCH (01:03)
[2024-07-01] MEDS: HYDROcodone/APAP 5-325MG 1 EACH TAB PO PRN (02:54)
[2024-07-01] MEDS: LEVOTHYROXINE 75 MCG TAB PO SCH (05:33)
[2024-07-01] MEDS: PANTOPRAZOLE 40 MG TABLET PO SCH (05:33)
[2024-07-01] MEDS: FLUoxetine HCL 20 MG CAP PO SCH (08:20)
[2024-07-01] MEDS: ASPIRIN 325 MG TAB PO SCH (08:20)
[2024-07-01] MEDS: lisinopriL 5 MG TAB PO SCH (08:20)
[2024-07-01] MEDS: amLODIPine 5 MG TAB PO SCH (08:20)
[2024-07-01] MEDS ORDERED: REGADENOSON 0.4 MG/5 ML SYRINGE IV PRN (10:05)
[2024-07-01] MEDS ORDERED: AMINOPHYLLINE 500 MG/20 ML VIAL IV PRN (10:05)
[2024-07-01] MEDS ORDERED: CAFFEINE CITRATE 60 MG/3 ML VIAL IV PRN (10:05)
[2024-07-01 10:17] LABS: Chol/HDL Ratio 3.68 Ratio
[2024-07-01] MEDS: MAG HYDROX/AL HYDROX/SIMETH 30 ML, HYOSCYAMINE ELIXIR 10 ML, LIDOCAINE VISCOUS 2% 10 ML PO ONE (10:34)
--- NOTE | 2024-07-01 12:07 | P.CRDCN ---
History of Present Illness Consult date: 07/01/24 Consult reason: chest pain History of present illness: This is a 64-year-old female with no previous cardiac history, does not follow with a plastics nurse. She has a past medical history of hypertension, hyperlipidemia, thyroid disorder. We have been asked to evaluate the patient for chest pain. Patient complains of chest pain in the front of her chest that goes through to her back as well as shortness of breath at times. She describes it as a stabbing type pain that started initially in her back with shortness of breath initial symptoms started on Tuesday and the pain was on the right side only. Eventually pain started going across her chest and now it is more persistent. Yesterday it started while she was doing laundry. She received Toradol and Dilaudid in the emergency center that did seem to help. She denies any tenderness to the chest wall and no abdominal tenderness. No foods seem to make it better or worse. She states the pain is still there at this time 04/04. Blood pressure 107/58, heart rate 76, pulse ox 98% on room air. EKG: Sinus rhythm no acute changes Chest x-ray: No acute process CTA of the chest negative for pulmonary embolism. Laboratory studies: CBC normal. D-dimer 2.27. Sodium 139, potassium 4.2, BUN 17 creatinine 1.06. Troponin negative x 3. Triglycerides 171, cholesterol 154, LDL 78, HDL 41. TSH 1.12. Home cardiac medications: Amlodipine 5 mg daily, atorvastatin 80 mg at bedtime, fenofibrate 40 mg at bedtime, lisinopril 5 mg daily. Review Of Systems: At the time of my exam: CONSTITUTIONAL: Denies fever or chills. HEENT: Denies blurred vision, vision changes, or eye pain. Denies hemoptysis CARDIOVASCULAR: Reports chest pain. Denies orthopnea. Denies PND. Denies palpitations RESPIRATORY: Denies shortness of breath. GASTROINTESTINAL: Denies abdominal pain. Denies nausea or vomiting. HEMATOLOGIC: Denies bleeding disorders. GENITOURINARY: Denies any blood in urine. SKIN: Denies puritis. Denies rash. Physical examination: Gen: This is a 64-year-old female resting in bed and appears to be comfortable VS: reviewed HEENT: Head is atraumatic, normocephalic. Pupils equal, round. Sclerae is anicteric. NECK: Supple. No JVD. LUNGS: Clear to auscultation. No wheezes or rhonchi. No intercostal retractions. HEART: Regular rate and rhythm. No murmur. ABDOMEN: Soft No tenderness. EXTREMITIES: No pedal edema. No calf tenderness. NEUROLOGICAL: Patient is awake, alert and oriented x3. Assessment: Atypical chest pain, acute coronary syndrome ruled out Hypertension Hyperlipidemia Hypothyroidism Plan: Resume patient's home cardiac medications Schedule patient for Lexiscan stress test on Tuesday Obtain 2-D echocardiogram and Doppler study to assess cardiac structure and f unction Further recommendations to follow based upon clinical course Thank you kindly for this consultation. Nurse practitioner note has been reviewed, I agree with documented findings and plan of care. Patient was seen and examined. Past Medical History Past Medical History: Hyperlipidemia, Hypertension, Thyroid Disorder History of Any Multi-Drug Resistant Organisms: MRSA Date of last positivie culture/infection: 2007 MDRO Source:: knee Past Surgical History: Section, Hysterectomy, Joint Replacement, Orthopedic Surgery Additional Past Surgical History / Comment(s): carpal tunnel, left knee replacement x3, right knee replacement x1, arthroscopic sx on right shoulder, total right shoulder replacement Past Psychological History: Anxiety, Bipolar, Depression Smoking Status: Never smoker Past Alcohol Use History: None Reported Past Drug Use History: None Reported - Past Family History Father History Unknown: Yes Additional Family Medical History / Comment(s): CANCER, ADOPTED NOT MUCH FAMILY HISTORY Medications and Allergies Home Medications Medication Instructions Recorded Confirmed Type Levothyroxine Sodium [Synthroid] 75 mcg PO DAILY 01/05/17 06/30/24 History Pantoprazole [Protonix] 40 mg PO DAILY #30 tab 03/31/24 06/30/24 Rx Atorvastatin [Lipitor] 80 mg PO HS 06/30/24 06/30/24 History FLUoxetine HCL [PROzac] 60 mg PO DAILY 06/30/24 06/30/24 History Fenofibrate Nanocrystallized 48 mg PO HS 06/30/24 06/30/24 History [Fenofibrate] Sucralfate [Carafate] 1 gm PO Q8H PRN 06/30/24 06/30/24 History amLODIPine [Norvasc] 5 mg PO DAILY 06/30/24 06/30/24 History lamoTRIgine [LaMICtal] 150 mg PO HS 06/30/24 06/30/24 History lisinopriL [Zestril] 5 mg PO DAILY 06/30/24 06/30/24 History rOPINIRole HCL [Requip] 0.5 mg PO HS 06/30/24 06/30/24 History traZODone HCL [Desyrel] 12.5 mg PO HS PRN 06/30/24 06/30/24 History Allergies Allergy/AdvReac Type Severity Reaction Status Date / Time aripiprazole [From Abiliy] Allergy Unknown Verified 06/30/24 16:23 heparin Allergy Unknown Verified 06/30/24 16:23 diclofenac AdvReac Nausea & Verified 06/30/24 16:23 Vomiting neomycin AdvReac Rash/Hives Verified 06/30/24 16:23 Physical Exam Vitals: Vital Signs Temp Pulse Pulse Resp BP BP Pulse Ox 07/01/24 09:20 63 15 07/01/24 07:00 98.1 F 63 15 108/67 98 07/01/24 01:20 97.8 F 54 L 15 105/67 99 06/30/24 20:53 97.5 F L 64 16 120/74 96 06/30/24 20:31 98 F 70 18 115/65 98 06/30/24 20:00 59 L 18 122/64 97 06/30/24 19:00 59 L 16 121/64 97 06/30/24 17:02 57 L 22 128/68 99 06/30/24 15:43 56 L 18 113/72 97 06/30/24 15:08 98 F 62 18 96/60 100 Intake and Output 06/30/24 07/01/24 07/01/24 22:59 06:59 14:59 Other: # Voids 0 2 Weight 65.317 kg Results 06/30/24 15:33 06/30/24 15:33 Cardiac Enzymes 06/30/24 06/30/24 06/30/24 Range/Units 15:33 15:33 20:27 AST 30 (14-36) U/L Troponin I <0.012 <0.012 (0.000-0.034) ng/mL Coagulation 06/30/24 Range/Units 15:33 PT 11.9 (10.0-12.5) sec APTT 24.8 (22.0-30.0) sec CBC 06/30/24 Range/Units 15:33 WBC 6.8 (3.8-10.6) k/uL RBC 4.35 (3.80-5.40) m/uL Hgb 13.7 (11.4-16.0) gm/dL Hct 41.5 (34.0-46.0) % Plt Count 278 (150-450) k/uL Comprehensive Metabolic Panel 06/30/24 Range/Units 15:33 Sodium 139 (137-145) mmol/L Potassium 4.2 (3.5-5.1) mmol/L Chloride 102 (98-107) mmol/L Carbon Dioxide 31 H (22-30) mmol/L BUN 17 (7-17) mg/dL Creatinine 1.06 H (0.52-1.04) mg/dL Glucose 96 (74-99) mg/dL Calcium 10.5 H (8.4-10.2) mg/dL AST 30 (14-36) U/L ALT 27 (4-34) U/L Alkaline Phosphatase 81 (38-126) U/L Total Protein 6.8 (6.3-8.2) g/dL Albumin 4.4 (3.5-5.0) g/dL Current Medications Generic Name Dose Route Start Last Admin Trade Name Freq PRN Reason Stop Dose Admin Hydrocodone Bitart/Acetaminophen 1 each 07/01/24 02:48 07/01/24 08:19 Hydrocodone/Apap 5-325mg 1 Each Tab PO 1 each Q6HR PRN Administration Pain Amlodipine Besylate 5 mg 07/01/24 09:00 07/01/24 08:20 Amlodipine 5 Mg Tab PO 5 mg DAILY BLADIMIR Administration Aspirin 325 mg 07/01/24 09:00 07/01/24 08:20 Aspirin 325 Mg Tab PO 325 mg DAILY BLADIMIR Administration Atorvastatin Calcium 80 mg 07/01/24 21:00 Atorvastatin 80 Mg Tab PO HS BLADIMIR Fenofibrate 54 mg 07/01/24 21:00 Fenofibrate 54 Mg Tab PO HS BLADIMIR Fluoxetine HCl 60 mg 07/01/24 09:00 07/01/24 08:20 Fluoxetine Hcl 20 Mg Cap PO 60 mg DAILY BLADIMIR Administration Lamotrigine 150 mg 07/01/24 21:00 Lamotrigine 100 Mg Tab PO HS BLADIMIR Levothyroxine Sodium 75 mcg 07/01/24 06:00 07/01/24 05:33 Levothyroxine 75 Mcg Tab PO 75 mcg DAILY@0600 BLADIMIR Administration Lisinopril 5 mg 07/01/24 09:00 07/01/24 08:20 Lisinopril 5 Mg Tab PO 5 mg DAILY BLADIMIR Administration Nitroglycerin 0.4 mg 06/30/24 19:35 Nitroglycerin Sl Tabs 0.4 Mg Tab SUBLINGUAL Q5M PRN Chest Pain Nitroglycerin 1 inch 07/01/24 00:00 07/01/24 01:54 Nitroglycerin Oint 1 Inch/Gm Packet TOPICAL 1 inch Q6HR BLADIMIR Administration Pantoprazole Sodium 40 mg 07/01/24 07:30 07/01/24 05:33 Pantoprazole 40 Mg Tablet PO 40 mg DAILY@0730 BLADIMIR Administration Ropinirole HCl 0.5 mg 06/30/24 21:00 06/30/24 20:22 Ropinirole Hcl 0.25 Mg Tab PO 0.5 mg HS BLADIMIR Administration Ropinirole HCl 0.5 mg 07/01/24 21:00 Ropinirole Hcl 0.25 Mg Tab PO HS BLADIMIR Trazodone HCl 12.5 mg 06/30/24 22:38 Trazodone Hcl 50 Mg Tab PO HS PRN Insomnia Intake and Output 06/30/24 07/01/24 07/01/24 22:59 06:59 14:59 Other: # Voids 0 2 Weight 65.317 kg 06/30/24 15:33 06/30/24 15:33
--- NOTE | 2024-07-01 17:47 | P.PN ---
Subjective Progress Note Date: 07/01/24 Hospital course: Patient is a very pleasant 64-year-old female with a past medical history of hypertension, hyperlipidemia, hypothyroidism, bipolar disorder, and anxiety with depression. She presented to the emergency department 06/30/2024 with a chief complaint of chest pain. Patient reporting intermittent midsternal chest pain radiating into her back accompanied by shortness of breath. She reports this pain is sharp and stabbing and worsened with exertion. She reports this pain initially began more towards the right side of her chest and now seems to be more midsternal chest radiating across to the front of her chest. She denies worsening pain with movement or upon palpation or with taking a deep breath but does report pain worsens with exertion. Upon arrival to our facility, patient underwent evaluation in the emergency department. Vital signs upon arrival show blood pressure 96/60, heart rate 62, respiratory rate 18, temp 98.0 F, and SpO2 100% on room air. EKG completed showing sinus bradycardia 58 bpm with no noted T wave or ST abnormality showing no signs of acute ischemia upon personal review and interpretation. Chest x-ray completed negative for acute cardiopulmonary process. Labs completed and reviewed. CBC unremarkable. Coagulation profile normal findings with the exception of elevated D-dimer of 2.27. BMP showing hypercarbia with bicarb of 31 and slightly elevated creatinine of 1.06. Blood glucose 96. Magnesium 1.9. Liver profile unremarkable. Troponin negative at less than 0.012. TSH 1.120. CTA chest completed showing no evidence of pulmonary embolism and negative for acute cardiopulmonary process. Patient mated under our services with consultation to cardiology. Troponins trended all negative at less than 0.012 x 3 draws. Lipid profile showing elevated triglycerides of 171 otherwise normal findings. Physical exam: Patient seen and fully evaluated at bedside. She reports chest pain remains constant 7 out of 10 at this time. She reports improvement after receiving Dilaudid otherwise denies anything making it better or worse. She denies having any associated symptoms at this time. Vital signs reviewed and stable. General: Nontoxic, no distress and appears stated age. Derm: Skin warm and dry, normal coloration for ethnicity. Head: Atraumatic, normocephalic and symmetric. Eyes: EOM's intact, no lid lag, and anicteric sclera Mouth: no lip lesions, mucus membranes moist Cardiovascular: regular rate and rhythm with normal S1S2, no murmur, positive posterior tibial pulses bilaterally, and cap refill < 2 seconds. Lungs: Respirations even, regular, and unlabored on room air. Lungs CTA bilaterally, no rhonchi, no rales, no wheezing, and no accessory muscle usage. Abdominal: soft, nontender to palpation, no guarding, no appreciable organomegaly Ext: ROM intact. No gross muscle atrophy, no edema, no contractures Neuro: Speech clear, face symmetrical and CN II-XII grossly intact with no noted focal neuro deficits Psych: Alert and oriented to person, place, time, and situation. Appropriate and pleasant affect. Assessment and Plan of Care: Atypical Chest pain, acute coronary event ruled out Hypertension Hyperlipidemia -Cardiology consulted, discussed plan of care with food supervisor and cardiac COFFEE MACHINE TECHNICIAN a patient to undergo stress testing tomorrow morning. -Telemetry monitoring -Troponins trended and all negative at less than 0.012 x 3 draws. -Cardiac diet, NPO at midnight -Continue daily medication regimen with aspirin 81 mg daily, amlodipine 5 mg daily, fenofibrate 54 mg nightly, lisinopril 5 mg daily. -Lipid profile showing elevated triglycerides of 171 otherwise normal findings. -Echocardiogram Hypothyroidism -Continue daily medication regimen with levothyroxine 75 mcg daily. Bipolar disorder Anxiety with depression -Continue daily medication regimen with fluoxetine 60 mg daily and Lamictal 150 mg nightly. Dating and imaging reviewed: -Repeat morning EKG showing sinus bradycardia at 53 bpm with no noted T wave or ST abnormality showing no signs of acute ischemia upon personal review and interpretation. -Troponins were trended and negative at less than 0.012 x 3 draws. Lipid profile showing elevated triglycerides of 171 otherwise normal findings. -Vital signs reviewed blood pressure 108/67, heart rate 63, respiratory rate 15, temp 98.1 F, and SpO2 of 98% on room air. CODE STATUS:Full Code DVT prophylaxis: SCDs secondary to patient's history of allergy to heparin analogs Anticipated discharge date: Pending clinical course Anticipated discharge place: Home Patient was seen independently by Nurse Pracitioner. This document was prepared using milog dictation software. Please allow for errors in dredge pipeman, while rare they do occur. . I reviewed the documentation as provided by the MAGDALENA above, who is the original author of this note. I agree with the documented assessment and plan, with the following changes: none Objective - Vital Signs Vital signs: Vital Signs Temp 98.1 F 07/01/24 07:00 Pulse 63 07/01/24 07:00 Resp 15 07/01/24 07:00 BP 108/67 07/01/24 07:00 Pulse Ox 98 07/01/24 07:00 FiO2 Intake & Output 06/30/24 07/01/24 07/01/24 18:59 06:59 18:59 Weight 65.317 kg 65.317 kg Other: # Voids 2 - Labs CBC & Chem 7: 06/30/24 15:33 06/30/24 15:33 Labs: Abnormal Lab Results - Last 24 Hours (Table) 06/30/24 06/30/24 Range/Units 15:33 15:33 D-Dimer 2.27 H (<0.60) mg/L FEU Carbon Dioxide 31 H (22-30) mmol/L Creatinine 1.06 H (0.52-1.04) mg/dL Calcium 10.5 H (8.4-10.2) mg/dL
[2024-07-01] MEDS: FENOFIBRATE 54 MG TAB PO SCH (20:04)
[2024-07-01] MEDS: ATORVASTATIN 80 MG TAB PO SCH (20:04)
[2024-07-01] MEDS: lamoTRIgine 100 MG TAB PO SCH (20:04)
[2024-07-02] MEDS ORDERED: REGADENOSON 0.4 MG/5 ML SYRINGE IV ONE (08:00)
[2024-07-02 08:51] LABS: HCT 39.3 % (37.2-46.3); HGB 13.2 g/dL (12.0-15.0); MCH 31.5 pg (27.0-32.0); MCHC 33.6 g/dL (32.0-37.0); MCV 93.8 FL (80.0-97.0); Mean Platelet Volume 10.7 FL (9.5-12.2); NRBC Per 100 WBC 0 X 10*3/uL (0.00-0.01); Platelet Count 262 X 10*3/uL (140-440); RBC 4.19 X 10*6/uL (4.10-5.20)
[2024-07-02 08:53] LABS: ALT 24 U/L (8-44); AST 23 U/L (13-35); Albumin 4.1 g/dL (3.8-4.9); Albumin/Globulin Ratio 2.05 Ratio (1.60-3.17); Alkaline Phosphatase 94 U/L (41-126); BUN/Creat Ratio 16.45 Ratio (12.00-20.00); Blood Urea Nitrogen 18.1 mg/dL (9.0-27.0); Calcium 9.3 mg/dL (8.7-10.3); Carbon Dioxide 27.4 mmol/L (21.6-31.8); Chloride 103 mmol/L (96-109); Glucose 98 mg/dL (70-110); Magnesium 2.1 mg/dL (1.5-2.4); Potassium 4.5 mmol/L (3.5-5.5); Sodium 140 mmol/L (135-145); Total Bilirubin <0.2 mg/dL (0.3-1.2); Total Protein 6.1 g/dL (6.2-8.2)
--- NOTE | 2024-07-02 11:28 | P.PN ---
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 She has a past medical history of hypertension, hyperlipidemia, thyroid disorder. We have been asked to evaluate the patient for chest pain. Patient complains of chest pain in the front of her chest that goes through to her back as well as shortness of breath at times. She describes it as a stabbing type pain that started initially in her back with shortness of breath initial symptoms started on Tuesday and the pain was on the right side only. Eventually pain started going across her chest and now it is more persistent. Yesterday it started while she was doing laundry. She received Toradol and Dilaudid in the emergency center that did seem to help. She denies any tenderness to the chest wall and no abdominal tenderness. No foods seem to make it better or worse. She states the pain is still there at this time 04/04. Blood pressure 107/58, heart rate 76, pulse ox 98% on room air. EKG: Sinus rhythm no acute changes Chest x-ray: No acute process CTA of the chest negative for pulmonary embolism. Laboratory studies: CBC normal. D-dimer 2.27. Sodium 139, potassium 4.2, BUN 17 creatinine 1.06. Troponin negative x 3. Triglycerides 171, cholesterol 154, LDL 78, HDL 41. TSH 1.12. Home cardiac medications: Amlodipine 5 mg daily, atorvastatin 80 mg at bedtime, fenofibrate 40 mg at bedtime, lisinopril 5 mg daily. 07/02/2024 Patient examined this morning at the bedside. Patient currently denies any chest pain or pressure. She denies any shortness of breath. Patient's vital signs are stable. 2D echo remains pending. PHYSICAL EXAM: VITAL SIGNS: Reviewed. GENERAL: Well-developed in no acute distress. NECK: Supple. No JVD or thyromegaly LUNGS: Respirations even and unlabored. Lungs essentially clear to auscultation bilaterally. HEART: Regular rate and rhythm. S1 and S2 heard. EXTREMITIES: Normal range of motion. No clubbing or cyanosis. Peripheral pulses intact. No lower extremity edema ASSESSMENT: Chest pain, appears noncardiac, acute coronary syndrome ruled out Hypertension Hyperlipidemia Hypothyroidism PLAN: 2D echo ordered. Await results. Continue current cardiac medications Patient to undergo Lexiscan stress test today If negative, patient may be discharged home from a cardiac standpoint Nurse practitioner note has been reviewed by physician. Signing provider agrees with the documented findings, assessment, and plan of care documented by PINION STAKER as a scribe. Objective - Vital Signs Vital signs: Vital Signs Temp 98.0 F 07/02/24 07:00 Pulse 65 07/02/24 07:00 Resp 16 07/02/24 07:00 BP 126/62 07/02/24 07:00 Pulse Ox 96 07/02/24 07:00 FiO2 Intake & Output 07/01/24 07/02/24 07/02/24 18:59 06:59 18:59 Intake Total 218 Balance 218 Intake: Oral 218 Other: # Voids 1 - Labs CBC & Chem 7: 07/02/24 04:44 07/02/24 04:44 Labs: Abnormal Lab Results - Last 24 Hours (Table) 07/02/24 Range/Units 04:44 Est GFR (CKD-EPI) 56 L (>=60) Total Bilirubin <0.2 L (0.3-1.2) mg/dL Total Protein 6.1 L (6.2-8.2) g/dL
[2024-07-02] MEDS: ASPIRIN 81 MG PO SCH (11:50)
--- NOTE | 2024-07-02 12:44 | CA ---
Lexiscan Nuclear Stress Test Report Name: Melissa Brown Exam Date: 07/02/2024 10:12 Exam Location: [facility] Stress Ht (in): 60 Wt (lb): 145 BSA: 1.63 Ordering Phys: Derek Angela Referring Phys: DEREK ANGELA Technologist: ZHEN Age: 64 Gender: F : 1960 Procedure CPT: Indications: Reflex order-Stress test ICD-10 Codes: Patient History: Chest pain, short of breath and hypertension Medications: Meds past 24 hrs: Pretest Chest Pain: STRESS TEST Lexiscan Protocol Exercise Duration (min:sec): 02:[address] Depressions (mm): Angina Score: Sweeney Score: Resting HR (bpm): 54 Peak HR (bpm): 87 Resting BP (mmHg): 108 / 67 Peak BP (mmHg): 114 / 65 MPHR: 157 Target HR: 133 % MPHR: 55 METS: 1.0 Total Dose: Peak Dose: Atropine: Double Product: 9918 BP Response: Stress Termination: Infusion complete Stress Symptoms: No chest pain or symptoms Stress Summary: ECG ANALYSIS Resting ECG: Sinus rhythm. Normal conduction. No arrhythmias. Normal repolarization. Stress ECG: No ECG changes from baseline with Lexiscan infusion. CONCLUSIONS No ECG evidence of ischemia with Lexiscan infusion. Nuclear test results to follow. Dr. Paola Mccrary MD (Electronically Signed) Final Date: 02 July 2024 12:44
--- NOTE | 2024-07-02 13:53 | NM ---
EXAMINATION TYPE: NM stress lexiscan cardiolite DATE OF EXAM: 07/02/2024 COMPARISON: NONE CLINICAL INDICATION: Female, 64 years old with history of chest pain; TECHNIQUE: After the intravenous administration of 10.2 mCi Tc 99m Sestamibi - Cardiolite resting SP ECT images acquired 45 minutes post injection. The patient received 0.4mg Lexiscan, 25.1 mCi Tc 99m Sestamibi - Stress images obtained [address] injection FINDINGS: Review of stress and rest SPECT images demonstrates a small area of fixed perfusion defect along the mid anterior wall suggestive of attenuation artifact. No corresponding abnormality on polar maps. No distinct reversibility is seen. Gated analysis shows normal wall motion with an estimated left ventri cular ejection fraction of 63 %. TID is calculated at 0.92, within normal limits. IMPRESSION: No scintigraphic evidence for reversible ischemia. [facility], , 07/02/2024 1:50 PM
[2024-07-02 15:27] VITALS: BP 110/65; PULSE 60; RESP 16; TEMP 98.6
--- NOTE | 2024-07-02 15:45 | P.DS ---
Providers Date of admission: 06/30/24 19:35 Expected date of discharge: 07/02/24 Attending physician: Anthony Segura MD Consults: 06/30/24 19:35 Consult Physician Urgent Consulting Provider: [facility] Consult Reason/Comments: Chest pain Do you want consulting provider notified?: Yes Primary care physician: Suzi Paiz MD Hospital Course: Discharge Diagnosis: Atypical Chest pain, acute coronary event ruled out. Continue daily medication regimen with aspirin 81 mg daily, amlodipine 5 mg daily, fenofibrate 54 mg nightly, lisinopril 5 mg daily. Hypertension. Continue daily medication regimen with amlodipine 5 mg daily and lisinopril 5 mg daily. Hyperlipidemia. Continue daily medication regimen with fenofibrate 54 mg nightly. Hypothyroidism. Continue daily medication regimen with levothyroxine 75 mcg daily. Bipolar disorder. Continue daily medication regimen with fluoxetine 60 mg daily and Lamictal 150 mg nightly. Anxiety with depression. Continue daily medication regimen with fluoxetine 60 mg daily and Lamictal 150 mg nightly. Dating and imaging reviewed: -Repeat morning EKG showing sinus bradycardia at 53 bpm with no noted T wave or ST abnormality showing no signs of acute ischemia upon personal review and interpretation. -Troponins were trended and negative at less than 0.012 x 3 draws. Lipid profile showing elevated triglycerides of 171 otherwise normal findings. -Vital signs reviewed blood pressure 108/67, heart rate 63, respiratory rate 15, temp 98.1 F, and SpO2 of 98% on room air. Hospital course: Patient is a very pleasant 64-year-old female with a past medical history of hypertension, hyperlipidemia, hypothyroidism, bipolar disorder, and anxiety with depression. She presented to the emergency department 06/30/2024 with a chief complaint of chest pain. Patient reporting intermittent midsternal chest pain radiating into her back accompanied by shortness of breath. She reports this pain is sharp and stabbing and worsened with exertion. She reports this pain initially began more towards the right side of her chest and now seems to be more midsternal chest radiating across to the front of her chest. She denies worsening pain with movement or upon palpation or with taking a deep breath but does report pain worsens with exertion. Upon arrival to our facility, patient underwent evaluation in the emergency department. Vital signs upon arrival show blood pressure 96/60, heart rate 62, respiratory rate 18, temp 98.0 F, and SpO2 100% on room air. EKG completed showing sinus bradycardia 58 bpm with no noted T wave or ST abnormality showing no signs of acute ischemia upon personal review and interpretation. Chest x-ray completed negative for acute cardiopulmonary process. Labs completed and reviewed. CBC unremarkable. Coagulation profile normal findings with the exception of elevated D-dimer of 2.27. BMP showing hypercarbia with bicarb of 31 and slightly elevated creatinine of 1.06. Blood glucose 96. Magnesium 1.9. Liver profile unremarkable. Troponin negative at less than 0.012. TSH 1.120. CTA chest completed showing no evidence of pulmonary embolism and negative for acute cardiopulmonary process. Patient meño lew under our services with consultation to cardiology. Troponins trended all negative at less than 0.012 x 3 draws. Lipid profile showing elevated triglycerides of 171 otherwise normal findings. Lexiscan stress test was completed and was negative showing no scintigraphic evidence for reversible ischemia and no ECG evidence of ischemia with Lexiscan infusion. Echocardiogram was completed and reviewed by cardiology, official report not available at this time. However per venetian blind tape cutter patient is cleared from cardiac standpoint for discharge recommending outpatient follow-up in their office. Physical exam: Patient seen and fully evaluated at bedside. She reports chest pain remains constant 7 out of 10 at this time. She reports improvement after receiving Dilaudid otherwise denies anything making it better or worse. She denies having any associated symptoms at this time. Vital signs reviewed and stable. General: Nontoxic, no distress and appears stated age. Derm: Skin warm and dry, normal coloration for ethnicity. Head: Atraumatic, normocephalic and symmetric. Eyes: EOM's intact, no lid lag, and anicteric sclera Mouth: no lip lesions, mucus membranes moist Cardiovascular: regular rate and rhythm with normal S1S2, no murmur, positive posterior tibial pulses bilaterally, and cap refill < 2 seconds. Lungs: Respirations even, regular, and unlabored on room air. Lungs CTA bilaterally, no rhonchi, no rales, no wheezing, and no accessory muscle usage. Abdominal: soft, nontender to palpation, no guarding, no appreciable organomegaly Ext: ROM intact. No gross muscle atrophy, no edema, no contractures Neuro: Speech clear, face symmetrical and CN II-XII grossly intact with no noted focal neuro deficits Psych: Alert and oriented to person, place, time, and situation. Appropriate and pleasant affect. A total of 34 minutes of time were spent preparing this complex discharge summary. Pt was discharged on 07/02/2024 at 3:09 PM. Patient was seen independently by Nurse Practitioner. This document was prepared using [employer] dictation software. Please allow for errors in manager gaming while rare they do occur. I reviewed the documentation as provided by the MAGDALENA above, who is the original author of this note. I agree with the documented assessment and plan, with the following changes: none Patient Condition at Discharge: Stable Plan - Discharge Summary New Discharge Prescriptions: Continue Levothyroxine Sodium [Synthroid] 75 mcg PO DAILY traZODone HCL [Desyrel] 12.5 mg PO HS PRN PRN Reason: Insomnia Sucralfate [Carafate] 1 gm PO Q8H PRN PRN Reason: Pain rOPINIRole HCL [Requip] 0.5 mg PO HS lisinopriL [Zestril] 5 mg PO DAILY lamoTRIgine [LaMICtal] 150 mg PO HS Fenofibrate Nanocrystallized [Fenofibrate] 48 mg PO HS Pantoprazole [Protonix] 40 mg PO DAILY #30 tab amLODIPine [Norvasc] 5 mg PO DAILY FLUoxetine HCL [PROzac] 60 mg PO DAILY Atorvastatin [Lipitor] 80 mg PO HS Discharge Medication List Levothyroxine Sodium [Synthroid] 75 mcg PO DAILY 01/05/17 [History] Pantoprazole [Protonix] 40 mg PO DAILY #30 tab 03/31/24 [Rx] Atorvastatin [Lipitor] 80 mg PO HS 06/30/24 [History] FLUoxetine HCL [PROzac] 60 mg PO DAILY 06/30/24 [History] Fenofibrate Nanocrystallized [Fenofibrate] 48 mg PO HS 06/30/24 [History] Sucralfate [Carafate] 1 gm PO Q8H PRN 06/30/24 [History] amLODIPine [Norvasc] 5 mg PO DAILY 06/30/24 [History] lamoTRIgine [LaMICtal] 150 mg PO HS 06/30/24 [History] lisinopriL [Zestril] 5 mg PO DAILY 06/30/24 [History] rOPINIRole HCL [Requip] 0.5 mg PO HS 06/30/24 [History] traZODone HCL [Desyrel] 12.5 mg PO HS PRN 06/30/24 [History] Follow up Appointment(s)/Referral(s): Adriel Dickens DO [STAFF PHYSICIAN] - 1 Week ([facility] will call patient with follow up date and time.) Suzi Paiz MD [Primary Care Provider] - 1-2 days Activity/Diet/Wound Care/Special Instructions: Activity: As tolerated. Take breaks as needed. Diet: Heart healthy and carb consistent diet. Avoid salts, or foods with hidden salts such as canned or boxed foods and frozen dinners. Extra salt makes your heart work harder and traps the fluid in your body for longer. Special Instructions: Take all of your medications as directed and remember to keep all of your doctor's appointments and follow-up as needed. Thank you for allowing us to participate in your care, it was truly a pleasure having you for our patient!!! Discharge Disposition: HOME SELF-CARE
--- NOTE | 2024-07-02 18:01 | CA ---
Transthoracic Echo Report Name: Melissa Brown Age: 64 Gender: F : 1960 Exam Date: 07/02/2024 11:12 Exam Location: [facility] Ht (in): 60 Wt (lb): 145 Ordering Physician: Noemy Angela Attending/Referring Phys: [id number], Coreen [employer] Economist Marianna Hagan RDCS Procedure CPT: Indications: LVF Cardiac Hx: Technical Quality: Fair Contrast 1: Total Dose (mL): Contrast 2: Total Dose (mL): MEASUREMENTS (Male / Female) Normal Values 2D ECHO LV Diastolic Diameter PLAX 3.5 cm 4.2 - 5.9 / 3.9 - 5.3 cm LV Systolic Diameter PLAX 2.1 cm IVS Diastolic Thickness 1.0 cm 0.6 - 1.0 / 0.6 - 0.9 cm LVPW Diastolic Thickness 1.0 cm 0.6 - 1.0 / 0.6 - 0.9 cm LV Relative Wall Thickness 0.6 RV Internal Dim ED PLAX 2.7 cm LA Volume 38.2 cm??? 18 - 58 / 22 - 52 cm??? LA Volume Index 22.6 cm???/m??? 16 - 28 cm???/m??? M-MODE Aortic Root Diameter MM 2.2 cm LA Systolic Diameter MM 3.7 cm LA Ao Ratio MM 1.6 AV Cusp Separation MM 1.6 cm DOPPLER AV Peak Velocity 118.2 cm/s AV Peak Gradient 5.6 mmHg AV Mean Velocity 80.5 cm/s AV Mean Gradient 2.8 mmHg AV Velocity Time Integral 27.0 cm LVOT Peak Velocity 113.7 cm/s LVOT Peak Gradient 5.2 mmHg LVOT Velocity Time Integral 24.2 cm MV Area PHT 2.9 cm??? Mitral E Point Velocity 83.0 cm/s Mitral A Point Velocity 68.5 cm/s Mitral E to A Ratio 1.2 MV Deceleration Time 260.7 ms MV E' Velocity 8.1 cm/s Mitral E to MV E' Ratio 10.2 TR Peak Velocity 203.0 cm/s TR Peak Gradient 16.5 mmHg Right Ventricular Systolic Press 21.5 mmHg FINDINGS Left Ventricle Left ventricular cavity size normal. Left ventricular wall thickness normal. Normal left ventricular systolic function with no obvious regional wall motion abnormalities. Left ventricular ejection fraction is estimated at 55-60 %. Right Ventricle Normal right ventricular size and function. Right ventricular systolic pressure within normal limits. Right Atrium Normal right atrial size. Left Atrium Normal left atrial size. Mitral Valve Structurally normal mitral valve. Mild mitral regurgitation. Aortic Valve No aortic valve stenosis or regurgitation. Trileaflet aortic valve. Tricuspid Valve Structurally normal tricuspid valve. Mild tricuspid regurgitation. Pulmonic Valve Structurally normal pulmonic valve.pulmonic valve not well visualized. Pericardium No pericardial effusion.echo free space anterior to the right ventricle likely represents a fat pad. Aorta Normal size aortic root and proximal ascending aorta. CONCLUSIONS 1. Normal left ventricular size and systolic function 2. Mild mitral and tricuspid regurgitation Previewed by: Dr. Paola Mccrary MD (Electronically Signed) Final Date: 02 July 2024 18:00
== END 2024-07-02 16:18 | disposition home or self-care (01) ==
LOC: EC 14:57 → 6NMEDSUR 19:35
PROVIDERS: ADMIT Internal Medicine; ATTEND Internal Medicine
DX: R07.89 Other chest pain (principal); I10 Essential (primary) hypertension; E03.9 Hypothyroidism, unspecified; E78.2 Mixed hyperlipidemia; F31.9 Bipolar disorder, unspecified; F41.9 Anxiety disorder, unspecified; Z79.82 Long term (current) use of aspirin; Z79.890 Hormone replacement therapy; Z79.899 Other long term (current) drug therapy; Z87.891 Personal history of nicotine dependence
CPT/HCPCS: 96374; 96375; 99285; 36415; 93005; 93017; 93306; 85379; 80061; 80053 ×2; 84443; 83735 ×2; 84484 ×3; 85025; 85027; 85610; 85730; 71046; 71275; 78452; G0378 ×3; A9500; J2785; J1885; J1171; Q9967